=== PATIENT | female | born 1995 | race Caucasian/White ===

== ENCOUNTER 2019-07-07 01:39 | Emergency (ER) | payer MEDICAID, SELFPAY ==
[2019-07-07] VITALS (8 sets, daily range): BP systolic 94–129; BP diastolic 54–74; PULSE 72–88; RESP 16–18; TEMP 36.6; O2SAT 96–99; BMI 30.2
[2019-07-07 02:02] LABS: Basophils # 0.1 10^3/uL (0.0-0.1); Basophils % 0.7 %; Eosinophils # 0.1 10^3/uL (0.0-0.8); Eosinophils % 1.7 %; Hematocrit 39.7 % (37.0-47.0); Hemoglobin 13.5 g/dL (11.5-15.3); Lymphocytes # 3.3 10^3/uL (0.8-4.8); Lymphocytes % 40.7 %; Mean Corpuscular Hemoglobin 29.5 pg (28.0-34.0); Mean Corpuscular Volume 86.9 fL (81-99); Mean Platelet Volume 10.6 fL (7.4-10.4); Monocytes # 0.4 10^3/uL (0.2-0.9); Monocytes % 4.8 %; Neutrophils # 4.2 10^3/uL (1.8-7.7); Neutrophils % 51.6 %; Nucleated Red Blood Cells % 0 %; Platelet Count 264 10^3/cmm (130-400); Red Blood Count 4.57 10^6/uL (4.1-5.3); Red Cell Distribution Width 12.7 % (12.1-15.1); White Blood Count 8.1 10^3/uL (4.0-10.0)
[2019-07-07 02:15] LABS: Alanine Aminotransferase 30 U/L (0-33); Albumin Level 4.9 g/dL (3.5-5.2); Alkaline Phosphatase 95 IU/L (35-105); Anion Gap 14.5 (5-19); Aspartate Amino Transferase 22 U/L (0-32); Blood Urea Nitrogen 11 mg/dL (6-20); Carbon Dioxide 27 mmol/L (22-29); Chloride 100 mmol/L (98-107); Globulin 2.8 g/dL (1.3-4.6); Glomerular Filtration Rate 101.1 mL/min (90-130); Glucose 118 mg/dL (74-109); Lipase 22 U/L (13-60); Potassium 3.5 mmol/L (3.5-5.1); Sodium 138 mmol/L (136-145); Total Bilirubin 0.6 mg/dL (0.15-1.2); Total Protein 7.7 g/dL (6.6-8.7)
--- NOTE | 2019-07-07 02:16 | ED_ITS ---
Entered by Kinsey Goodwin, acting as scribe for Jordan Baker DO Jul 07, 2019 01:39 HPI - Abdominal Pain General: Chief Complaint: Abdominal Pain Stated Complaint: ABD PAIN Time Seen by Provider: 07/07/19 02:17 Source: patient Mode of arrival: ambulatory Limitations: no limitations History of Present Illness: HPI narrative: 24 yo m came to the er pov fro abd pain. Onset was 3 days ago. Pt states that she has been vomiting and has had some nausea. Pt states that the pain started 3 days ago but has gotten worse. Pt states that she has been having some dark stool. MD elicited complaint: abdominal pain Pertinent past history: none Onset (ago): day(s) (3 days ago) Pain Consistency: constant Location: Epigastric and LUQ Severity: mild Pain scale (0-10): 8 Quality: sharp Migration to: no migration Associated Symptoms: Denies chills, dysuria, fever(s), hematochezia, hematuria, melena, nausea and vomiting Related Data: Patient : No Review of Systems Const: Denies: fever or chills Eyes: Denies: change in vision or blurry vision ENMT: Denies: painful swallowing, swelling of lips/tongue, bleeding gums, dental pain, Change in hearing, nose bleeds, post nasal drip or facial/sinus pain Card: Denies: chest pain, palpitations, irregular heart rhythm, edema, swelling of feet/ankles, shortness of breath on exertion or shortness of breath when lying down Resp: Denies: shortness of breath, productive cough, non-productive cough or wheezing GI: Denies: nausea, vomiting, blood in stool or black tarry stool : Denies: painful urination or blood in urine Musc: Denies: neck pain, back pain, redness or joint warmth Skin/Breast: Denies: rash, itching or redness Neuro: Denies: headache, dizziness, vertigo, confusion or seizure-like activity Psych: Denies: anxiety, visual hallucinations or auditory hallucinations PFSH ED PFSH: Statuses (acute, chronic, etc) shown below reflect problem list status as previously entered and may not be historically accurate Social History Smoking and tobacco status: former smoker Physical Exam Const: COMMON NORMALS: alert GENERAL APPEARANCE: well developed ORIENTATION/CONSCIOUSNESS: Yes awake, Yes oriented to person, Yes oriented to place and Yes oriented to time HENMT: COMMON NORMALS: normocephalic, external ears normal, external nose normal and moist oral mucous membranes HEAD & SCALP: normocephalic; no scalp tenderness FACE & SINUS: normal facial exam NOSE: external nose normal and no nasal discharge EXTERNAL EAR: Yes external ears normal MOUTH: tongue normal TEETH & GINGIVA: no abnormal tooth and associated gingiva THROAT: posterior oropharynx normal; no peritonsillar mass Eye: COMMON NORMALS: PERRL, EOMs intact bilaterally and conjunctivae normal EYELID: eyelids normal CONJUNCTIVA: Yes conjunctivae normal PUPIL: Yes PERRL Neck/C-Spine: COMMON NORMALS: full ROM GENERAL: Yes anterior neck swelling and No tracheal deviation CERVICAL SPINE: Yes normal cervical lordosis, No cervical spine tenderness, No step off deformity, No paracervical muscle tenderness and No paracervical muscle spasm Chest: COMMONS NORMALS: inspection of chest normal CHEST: Yes symmetrical chest wall rise and No tenderness Resp: COMMON NORMALS: clear to auscultation bilaterally EFFORT & INSPECTION: No tachypneic, No respiratory distress, No retractions, No uses accessory muscles and No tracheal deviation AUSCULTATION: clear to auscultation bilaterally, no rhonchi, no wheezes and lung sounds not diminished Cardio: COMMON NORMALS: regular rate and regular rhythm RATE: regular rate RHYTHM: regular rhythm HEART SOUNDS: no murmurs PERIPHERAL PULSES: radial pulses present GI: INSPECTION: No abdominal distension AUSCULTATION: No hyperactive bowel sounds and No hypoactive bowel sounds PALPATION: No tender, No guarding and No rigid PERCUSSION: no dullness to percussion and no tympanic to percussion : COMMON NORMALS: Yes no CVA tenderness BLADDER/KIDNEY EXAM: Yes no CVA tenderness Back/Pelvis: COMMON NORMALS: no CVA tenderness PELVIS: Yes no pain with anterior-posterior compression and Yes no pain with lateral compression Neuro: SENSORIUM/ORIENTATION: Yes alert, Yes oriented to person, Yes oriented to place and Yes oriented to time Psych: COMMON NORMALS: mental status grossly normal and speech normal SPEECH: Yes normal speech Skin: COMMON NORMALS: no rashes or lesions noted GENERAL SKIN EXAM: no rashes or lesions noted Course ED course: 24-year-old non female presents with generalized belly pain, mainly in the periumbilical region. No flank pain. She is vomited once. No fever. No leukocytosis. Her CRP is 0.4. Liver enzymes are normal. She has a hazy appearing urine, with some red cells. She is feeling better after medication. Will allow home with pain and nausea medication. Vital Signs: Vital signs: Vital Signs Temperature 97.8 F 07/07/19 03:40 Pulse Rate 84 07/07/19 04:07 Respiratory Rate 18 07/07/19 03:11 Blood Pressure 94/60 07/07/19 04:07 Pulse Oximetry 98 07/07/19 04:07 MDM - Abdominal Pain Lab Data: Labs: Lab Results 07/07/19 07/07/19 07/07/19 Range/Units 01:55 01:55 01:55 WBC 8.1 (4.0-10.0) 10^3/ uL RBC 4.57 (4.1-5.3) 10^6/u L Hgb 13.5 (11.5-15.3) g/dL Hct 39.7 (37.0-47.0) % MCV 86.9 (81-99) fL MCH 29.5 (28.0-34.0) pg MCHC 34.0 (30.0-36.0) g/dL RDW 12.7 (12.1-15.1) % Plt Count 264 (130-400) 10^3/c mm MPV 10.6 H (7.4-10.4) fL Neut % (Auto) 51.6 % Lymph % (Auto) 40.7 % [place] % (Auto) 4.8 % Eos % (Auto) 1.7 % Baso % (Auto) 0.7 % Neut # (Auto) 4.2 (1.8-7.7) 10^3/u L Lymph # (Auto) 3.3 (0.8-4.8) 10^3/u L [place] # (Auto) 0.4 (0.2-0.9) 10^3/u L Eos # (Auto) 0.1 (0.0-0.8) 10^3/u L Baso # (Auto) 0.1 (0.0-0.1) 10^3/u L Nucleated RBC % (a uto) 0 % Nucleated RBCs # 0.0 /100WBC Sodium 138 (136-145) mmol/L Potassium 3.5 (3.5-5.1) mmol/L Chloride 100 (98-107) mmol/L Carbon Dioxide 27 (22-29) mmol/L Anion Gap 14.5 (5-19) BUN 11 (6-20) mg/dL Creatinine 0.7 (0.5-0.9) mg/dL GFR Calculation 101.1 (90-130) mL/min Glucose 118 H (74-109) mg/dL Calcium 10.0 (8.6-10.0) mg/Dl Total Bilirubin 0.6 (0.15-1.2) mg/dL AST 22 (0-32) U/L ALT 30 (0-33) U/L Alkaline Phosphata se 95 (35-105) IU/L C-Reactive Protein (0.0-4.9) mg/L Total Protein 7.7 (6.6-8.7) g/dL Albumin 4.9 (3.5-5.2) g/dL Globulin 2.8 (1.3-4.6) g/dL Lipase 22 (13-60) U/L HCG, Qual Negative (Negative) Urine Color (Yellow) Urine Appearance (CLEAR) Urine pH (5-7) Ur Specific Gravit y (1.005-1.030) Urine Protein (Negative) Urine Glucose (UA) (Normal) Urine Ketones (Negative) Urine Occult Blood (Negative) Urine Nitrate (Negative) Urine Bilirubin (NEGATIVE) Urine Urobilinogen (Negative) mg/dL Ur Leukocyte [place] (Negative) Urine RBC (0-2) /hpf Urine WBC (0-5) /hpf Ur Squamous Epith Cells (0-5) Urine Bacteria (NONE) 07/07/19 07/07/19 Range/Units 01:55 03:38 WBC (4.0-10.0) 10^3/ uL RBC (4.1-5.3) 10^6/u L Hgb (11.5-15.3) g/dL Hct (37.0-47.0) % MCV (81-99) fL MCH (28.0-34.0) pg MCHC (30.0-36.0) g/dL RDW (12.1-15.1) % Plt Count (130-400) 10^3/c mm MPV (7.4-10.4) fL Neut % (Auto) % Lymph % (Auto) % [place] % (Auto) % Eos % (Auto) % Baso % (Auto) % Neut # (Auto) (1.8-7.7) 10^3/u L Lymph # (Auto) (0.8-4.8) 10^3/u L [place] # (Auto) (0.2-0.9) 10^3/u L Eos # (Auto) (0.0-0.8) 10^3/u L Baso # (Auto) (0.0-0.1) 10^3/u L Nucleated RBC % (a uto) % Nucleated RBCs # /100WBC Sodium (136-145) mmol/L Potassium (3.5-5.1) mmol/L Chloride (98-107) mmol/L Carbon Dioxide (22-29) mmol/L Anion Gap (5-19) BUN (6-20) mg/dL Creatinine (0.5-0.9) mg/dL GFR Calculation (90-130) mL/min Glucose (74-109) mg/dL Calcium (8.6-10.0) mg/Dl Total Bilirubin (0.15-1.2) mg/dL AST (0-32) U/L ALT (0-33) U/L Alkaline Phosphata se (35-105) IU/L C-Reactive Protein 0.4 (0.0-4.9) mg/L Total Protein (6.6-8.7) g/dL Albumin (3.5-5.2) g/dL Globulin (1.3-4.6) g/dL Lipase (13-60) U/L HCG, Qual (Negative) Urine Color Dark yellow (Yellow) Urine Appearance Hazy A (CLEAR) Urine pH 5 (5-7) Ur Specific Gravit y 1.025 (1.005-1.030) Urine Protein Trace (Negative) Urine Glucose (UA) Norm (Normal) Urine Ketones 1+ H (Negative) Urine Occult Blood 2+ H (Negative) Urine Nitrate Negative (Negative) Urine Bilirubin 1+ H (NEGATIVE) Urine Urobilinogen 1 H (Negative) mg/dL Ur Leukocyte [place] Trace H (Negative) Urine RBC 10-15 H (0-2) /hpf Urine WBC 0-4 H (0-5) /hpf Ur Squamous Epith Cells 5-10 H (0-5) Urine Bacteria 4+ H (NONE) Discharge Plan Discharge Patient Disposition: Home, Self-Care Clinical Impression: Abdominal pain in female Condition: Stable Prescriptions: [place] 5-325 mg tablet 1 tab PO Q6H PRN (Reason: pain) Qty: 7 RF: 0 ondansetron HCl [Zofran] 4 mg tablet 4 mg PO Q6H PRN (Reason: nausea and vomiting) Qty: 10 RF: 0 No Action Prozac 20 mg Capsule 20 mg PO DAILY RF: 0 Discharge Orders: Discharge Order (Routine); Ordered 07/07/19 Ordered By: Jordan Baker Referrals: Reid Gamino MD [Primary Care Provider] - Discharge Diet: Advance as tolerated Discharge Activity: Resume usual activity Patient Instructions: Cholecystitis (ED), Abdominal Pain (ED) Activity Restrictions/Additional Instructions: Return for fever greater than 100, worsening pain despite treatment, vomiting liquids or medications, other concerning symptoms. Coding Level of Care Code ED Facsimile Machine Operator for g Fwd The documentation recorded by the Buddy joyce Stephanie Lyn, accurately reflects the service I personally performed and the decisions made by Samuel arzate Jeremy John, DO Jul 07, 2019 01:39
--- NOTE | 2019-07-07 02:27 | PC.NURSE ---
Addendum entered by Devin Laguna 07/07/19 02:27: NAD. Pt is A&O x 4 Original Note: Pt presents to ER with abdominal pain. Pt states very dark stool earler in PM.
[2019-07-07 02:44] LABS: HCG, Serum Qual Negative (Negative)
[2019-07-07 02:45] LABS: C Reactive Protein 0.4 mg/L (0.0-4.9)
[2019-07-07 04:15] LABS: Add Urine Microscopic? YES; Bilirubin Urine 1+ (NEGATIVE); Blood Urine 2+ (Negative); Glucose Urine UA Norm (Normal); Ketones Urine 1+ (Negative); Leukocyte Esterase Urine Trace (Negative); Nitrate Urine Negative (Negative); Protein Urine Trace (Negative); Specific Gravity, Urine 1.025 (1.005-1.030); Urine Appearance Hazy (CLEAR); Urine Color Dark Yellow (Yellow); Urobilinogen Urine 1 mg/dL (Negative); pH Urine 5 (5-7)
[2019-07-07 04:16] LABS: Add Urine Culture? Yes; Bacteria Urine 4+; WBC Urine 0-4 /hpf (0-5)
[2019-07-07] MEDS: ondansetron 2 mg/ML SDV 2 mL 4 MG IVP (04:22)
[2019-07-07] MEDS: morphine 4 mg/mL SDV 1 mL IVP (04:23)
== END 2019-07-07 04:48 | disposition home or self-care (01) ==
PROVIDERS: Physician Assistant; Emergency Provider Emergency Medicine; PCP Family Medicine
DX: R10.9 Unspecified abdominal pain (principal); Z87.891 Personal history of nicotine dependence
CPT/HCPCS: 80053; 81003; 83690; 84703; 85025; 86140; 87086; 96374; 99282; J2270; J2405

== ENCOUNTER → 2019-08-23 08:16 | Outpatient (BNVA) | payer MEDICAID, SELFPAY | PROVIDERS: PCP Family Medicine; Visit Provider Counselor Mental Health | DX: F41.1 Generalized anxiety disorder (principal) | CPT/HCPCS: 90832 ==

== ENCOUNTER → 2019-08-30 09:49 | Outpatient (BNVA) | payer MEDICAID, SELFPAY | PROVIDERS: PCP Family Medicine; Visit Provider Counselor Mental Health | DX: F41.1 Generalized anxiety disorder (principal); F43.10 Post-traumatic stress disorder, unspecified | CPT/HCPCS: 90834 ==

== ENCOUNTER 2019-09-08 19:39 | Emergency (ER) | payer MEDICAID, SELFPAY ==
[2019-09-08 20:18] VITALS: BP 129/77; PULSE 137; RESP 18; TEMP 36.6; O2SAT 99
[2019-09-08 20:18] LABS: Basophils % 0.2 %; Eosinophils # 0.1 10^3/uL (0.0-0.8); Eosinophils % 0.9 %; Hematocrit 41.3 % (37.0-47.0); Hemoglobin 14.2 g/dL (11.5-15.3); Lymphocytes # 0.5 10^3/uL (0.8-4.8); Lymphocytes % 6.1 %; Mean Corpuscular HGB Conc 34.4 g/dL (30.0-36.0); Mean Corpuscular Hemoglobin 29.5 pg (28.0-34.0); Mean Corpuscular Volume 85.7 fL (81-99); Mean Platelet Volume 11.1 fL (7.4-10.4); Monocytes # 0.2 10^3/uL (0.2-0.9); Monocytes % 2.2 %; Neutrophils # 7.8 10^3/uL (1.8-7.7); Neutrophils % 90.3 %; Nucleated Red Blood Cells % 0 %; Platelet Count 153 10^3/cmm (130-400); Red Blood Count 4.82 10^6/uL (4.1-5.3); Red Cell Distribution Width 12.2 % (12.1-15.1); White Blood Count 8.6 10^3/uL (4.0-10.0)
[2019-09-08 20:29] LABS: HCG, Serum Qual Negative (Negative)
[2019-09-08 20:36] LABS: Alanine Aminotransferase 24 U/L (0-33); Alkaline Phosphatase 75 IU/L (35-105); Anion Gap 19.6 (5-19); Aspartate Amino Transferase 29 U/L (0-32); Blood Urea Nitrogen 19 mg/dL (6-20); Calcium 9.9 mg/dL (8.5-10.5); Carbon Dioxide 21 mmol/L (22-29); Chloride 100 mmol/L (98-107); Globulin 2.5 g/dL (1.3-4.6); Glomerular Filtration Rate 86.7 mL/min (90-130); Glucose 119 mg/dL (65-115); Lipase 23 U/L (13-60); Osmolality Calculated 282 mOsm/kg (285-295); Potassium 3.6 mmol/L (3.5-5.1); Sodium 137 mmol/L (136-145); Total Bilirubin 0.7 mg/dL (0.15-1.2); Total Protein 7.5 g/dL (6.6-8.7)
--- NOTE | 2019-09-08 20:38 | CTR_ITS ---
PROCEDURE INFORMATION: Exam: CT Abdomen And Pelvis With Contrast Exam date and time: 09/08/2019 9:14 PM Age: 24 years old Clinical indication: Abdominal pain; Localized; Prior surgery; Surgery date: 6+ months; Surgery type: Utreine repair; Patient HX: C/O lower abd pain w n/v/d TECHNIQUE: Imaging protocol: Computed tomography of the abdomen and pelvis with intravenous contrast. Total DLP: 733.3 mGy-cm Radiation optimization: All CT scans at this facility use at least one of these dose optimization techniques: automated exposure control; mA and/or kV adjustment per patient size (includes targeted exams where dose is matched to clinical indication); or iterative reconstruction. Contrast material: OMNI 300; Contrast volume: 95 ml; Contrast route: 22G; COMPARISON: CT abdomen pelvis w con* [id number] 05/28/2018 9:03 PM FINDINGS: Liver: Normal. No mass. Gallbladder and bile ducts: Normal. No calcified stones. No ductal dilation. Pancreas: Normal. No ductal dilation. Spleen: Normal. No splenomegaly. Adrenals: Normal. No mass. Kidneys and ureters: Normal. No hydronephrosis. Stomach and bowel: Unremarkable. No obstruction. No mucosal thickening. Appendix: The appendix is normal. Intraperitoneal space: Trace free fluid is present in the pelvis, which is likely physiologic. Vasculature: Unremarkable. No abdominal aortic aneurysm. Lymph nodes: Unremarkable. No enlarged lymph nodes. Bladder: Unremarkable as visualized. Reproductive: The uterus appears normal. Bilateral ovarian cysts are noted. The largest cyst measures 3 cm (left ovary). Bones/joints: Unremarkable. No acute fracture. Soft tissues: Unremarkable. CT/CT abdomen pelvis w con* [id number] IMPRESSION: No acute abnormality is seen. Bilateral ovarian cysts are noted. Radiation Dose CTDIVOL = (mGy): DLP = 733.3 (mGy-cm)
--- NOTE | 2019-09-08 20:44 | ED_ITS ---
Entered by Denisha Barreto, acting as scribe for Macrina Plaza Mahesh Sep 08, 2019 19:39 HPI - Abdominal Pain General: Chief Complaint: Abdominal Pain Stated Complaint: lower abd pain/vomiting Time Seen by Provider: 09/08/19 20:34 Source: patient Mode of arrival: ambulatory Limitations: no limitations History of Present Illness: HPI narrative: 24 yo Female presents to ED with complaint of lower abdominal pain. Pt states that her pain started 2-3 days ago but has worsened today. Pt states that she has had nausea and vomiting today as well. MD elicited complaint: abdominal pain Onset (ago): day(s) (2-3) Pain Consistency: constant Location: RLQ Pain scale (0-10): 10 Quality: stabbing and sharp Radiation: none Migration to: no migration Exacerbating factors: nothing Relieving factors: nothing Associated Symptoms: Reports nausea and vomiting; Denies chills, coffee ground emesis, constipation, GI cramping, diarrhea, dysuria, fever(s), hematochezia, hematuria, hematemesis, melena and syncope Review of Systems General: Reports: other (negative unless marked) Const: Denies: fever, chills, body aches, fatigue, malaise or diaphoresis Eyes: Denies: change in vision or blurry vision ENMT: Denies: throat pain, painful swallowing, hoarseness, ear pain, ear discharge, Change in hearing or nasal discharge Card: Denies: chest pain, palpitations, irregular heart rhythm, syncope, pre- syncope, shortness of breath on exertion or shortness of breath when lying down Resp: Denies: shortness of breath, productive cough, non-productive cough, wheezing, coughing up blood or chest congestion GI: Reports: nausea and vomiting; Denies: abdominal pain, vomiting blood, coffee grounds in vomit, diarrhea, constipation, cramping, blood in stool or black tarry stool : Denies: flank pain, painful urination, urinary frequency, urinary urgency, decreased urine ouput, urinary incontinence or blood in urine Musc: Denies: neck pain, back pain, extremity pain, extremity swelling, joint pain, joint swelling, joint warmth or joint stiffness Skin/Breast: Denies: rash, skin tenderness or yellow skin Neuro: Denies: headache, numbness in extremities, weakness in extremities, changes in sensation, lack of coordination, difficulty walking, dizziness, vertigo or confusion Endo: Denies: excessive thirst, tired all the time, cold intolerance, excessive sweating, flushing or hot flashes Bonifacio/Lymph: Denies: easy bruising, easy bleeding, petechiae or enlarged lymph nodes All/Imm: Denies: hives, throat swelling, tongue swelling, facial swelling or acute wheezing PFSH ED PFSH: Social History Smoking and tobacco status: former smoker Physical Exam Const: COMMON NORMALS: no apparent distress, oriented x3, no limitations, healthy appearing and well nourished EXAM LIMITATIONS: no altered mental status GENERAL APPEARANCE: cooperative, well kempt and well developed ORIENTATION/CONSCIOUSNESS: Yes awake HENMT: COMMON NORMALS: normocephalic, head/scalp atraumatic, hearing grossly normal bilaterally, external ears normal, EAC's normal, external nose normal and moist oral mucous membranes HEAD & SCALP: normal to inspection, normocephalic and atraumatic FACE & SINUS: normal facial exam and face symmetric NOSE: external nose normal and nares normal EXTERNAL EAR: Yes external ears normal EXTERNAL AUDITORY CANAL: EAC's normal MOUTH: oral and palatal mucosa normal and tongue normal Eye: COMMON NORMALS: PERRL, EOMs intact bilaterally, conjunctivae normal and no scleral icterus GENERAL EYE: normal appearance of both eyes and normal light reflex CONJUNCTIVA: Yes conjunctivae normal SCLERA: sclerae normal CORNEA: Yes corneas normal PUPIL: Yes PERRL DIRECT OPHTHALMOSCOPY: Yes normal light reflex Neck/C-Spine: COMMON NORMALS: full ROM, no lymphadenopathy, supple, no meningeal signs and no JVD GENERAL: Yes normal visual inspection and Yes trachea midline CERVICAL SPINE: Yes cervical ROM normal Chest: COMMONS NORMALS: inspection of chest normal and palpation of chest normal Resp: COMMON NORMALS: normal respiratory effort, no retractions, no use of accessory muscles and clear to auscultation bilaterally EFFORT & INSPECTION: Yes able to speak in complete sentences AUSCULTATION: clear to auscultation bilaterally Cardio: COMMON NORMALS: no JVD, regular rate, regular rhythm, S1 normal heart sound, S2 normal heart sound, no gallops, no clicks, no murmurs and no rub JUGULAR VENOUS DISTENTION: no JVD RATE: regular rate RHYTHM: regular rhythm HEART SOUNDS: S1 normal and S2 normal GI: COMMON NORMALS: soft to palpation, non-tender, no hepatosplenomegaly and no masses INSPECTION: Yes normal to inspection PALPATION: Yes soft and Yes no hepatosplenomegaly : COMMON NORMALS: Yes no CVA tenderness BLADDER/KIDNEY EXAM: Yes no CVA tenderness Back/Pelvis: COMMON NORMALS: no CVA tenderness, thoracic and lumbar spine normal to inspection, no thoracic nor lumbar tenderness and thoraco-lumbar ROM normal Extremity: COMMON NORMALS: normal to inspection, full ROM, normal capillary refill, no joint enlargement, no clubbing, cyanosis or edema and no calf tenderness Neuro: COMMON NORMALS: oriented x3, CN's II-XII intact bilaterally, moves all extremities, no focal motor deficits and no sensory deficits noted MENINGEAL SIGNS: Yes no meningeal signs Psych: COMMON NORMALS: mental status grossly normal, thought process normal, cooperative, affect normal, speech normal and activity/motor behavior normal APPEARANCE: Yes well kempt SPEECH: Yes normal speech THOUGHT PROCESS: normal thought process Skin: COMMON NORMALS: no rashes or lesions noted, skin turgor normal, no jaundice, no petechiae and no mottling GENERAL SKIN EXAM: no rashes or lesions noted and turgor normal Course Vital Signs: Vital signs: Vital Signs Temperature 97.9 F 09/08/19 20:18 Pulse Rate 92 09/08/19 23:00 Respiratory Rate 18 09/08/19 23:00 Blood Pressure 121/75 09/08/19 23:00 Pulse Oximetry 97 09/08/19 23:00 MDM - Abdominal Pain 2 MDM Narrative: Medical decision making narrative: Poly is a nice 24-year-old female who comes in complaining primarily of right lower quadrant pain. The pain started 2 to 3 days ago and is wax and wane in intensity. She denies any vaginal discharge or bleeding. She has any dysuria, urinary frequency or urgency. On exam she has tenderness in the right lower quadrant but there is no rebound or guarding. CT scan reveals a normal appendix. There are bilateral ovarian cysts that are small. 3 cm being the biggest cyst. This is on the left. Patient has no focal tenderness on the left. I did offer and recommend a ultrasound to rule out ovarian torsion but the patient declines. She is feeling better and was ready to go home. I reviewed with her at length the signs and symptoms for which to return for especially for appendicitis and she states she understands. She will follow-up as directed or return here if needed. Lab Data: Labs: Lab Results 09/08/19 09/08/19 09/08/19 Range/Units 20:08 20:08 20:08 WBC 8.6 (4.0-10.0) 10^3/ uL RBC 4.82 (4.1-5.3) 10^6/u L Hgb 14.2 (11.5-15.3) g/dL Hct 41.3 (37.0-47.0) % MCV 85.7 (81-99) fL MCH 29.5 (28.0-34.0) pg MCHC 34.4 (30.0-36.0) g/dL RDW 12.2 (12.1-15.1) % Plt Count 153 (130-400) 10^3/c mm MPV 11.1 H (7.4-10.4) fL Neut % (Auto) 90.3 % Lymph % (Auto) 6.1 % [place] % (Auto) 2.2 % Eos % (Auto) 0.9 % Baso % (Auto) 0.2 % Neut # (Auto) 7.8 H (1.8-7.7) 10^3/u L Lymph # (Auto) 0.5 L (0.8-4.8) 10^3/u L [place] # (Auto) 0.2 (0.2-0.9) 10^3/u L Eos # (Auto) 0.1 (0.0-0.8) 10^3/u L Baso # (Auto) 0.0 (0.0-0.1) 10^3/u L Nucleated RBC % (a uto) 0 % Nucleated RBCs # 0.0 /100WBC Sodium 137 (136-145) mmol/L Potassium 3.6 (3.5-5.1) mmol/L Chloride 100 (98-107) mmol/L Carbon Dioxide 21 L (22-29) mmol/L Anion Gap 19.6 H (5-19) BUN 19 (6-20) mg/dL Creatinine 0.8 (0.5-0.9) mg/dL GFR Calculation 86.7 L (90-130) mL/min Glucose 119 H (65-115) mg/dL Calculated Osmolal ity 282 L (285-295) mOsm/k g Calcium 9.9 (8.5-10.5) mg/dL Total Bilirubin 0.7 (0.15-1.2) mg/dL AST 29 (0-32) U/L ALT 24 (0-33) U/L Alkaline Phosphata se 75 (35-105) IU/L Total Protein 7.5 (6.6-8.7) g/dL Albumin 5.0 (3.5-5.2) g/dL Globulin 2.5 (1.3-4.6) g/dL Lipase 23 (13-60) U/L HCG, Qual Negative (Negative) Urine Color (Yellow) Urine Appearance (CLEAR) Urine pH (5-7) Ur Specific Gravit y (1.005-1.030) Urine Protein (Negative) Urine Glucose (UA) (Normal) Urine Ketones (Negative) Urine Blood (Negative) Urine Nitrate (Negative) Urine Bilirubin (NEGATIVE) Urine Urobilinogen (Negative) mg/dL Ur Leukocyte Lena ase (Negative) Urine RBC (0-2) /hpf Urine WBC (0-5) /hpf Ur Squamous Epith Cells (0-5) Urine Bacteria (NONE) 09/08/19 Range/Units 21:52 WBC (4.0-10.0) 10^3/ uL RBC (4.1-5.3) 10^6/u L Hgb (11.5-15.3) g/dL Hct (37.0-47.0) % MCV (81-99) fL MCH (28.0-34.0) pg MCHC (30.0-36.0) g/dL RDW (12.1-15.1) % Plt Count (130-400) 10^3/c mm MPV (7.4-10.4) fL Neut % (Auto) % Lymph % (Auto) % [place] % (Auto) % Eos % (Auto) % Baso % (Auto) % Neut # (Auto) (1.8-7.7) 10^3/u L Lymph # (Auto) (0.8-4.8) 10^3/u L [place] # (Auto) (0.2-0.9) 10^3/u L Eos # (Auto) (0.0-0.8) 10^3/u L Baso # (Auto) (0.0-0.1) 10^3/u L Nucleated RBC % (a uto) % Nucleated RBCs # /100WBC Sodium (136-145) mmol/L Potassium (3.5-5.1) mmol/L Chloride (98-107) mmol/L Carbon Dioxide (22-29) mmol/L Anion Gap (5-19) BUN (6-20) mg/dL Creatinine (0.5-0.9) mg/dL GFR Calculation (90-130) mL/min Glucose (65-115) mg/dL Calculated Osmolal ity (285-295) mOsm/k g Calcium (8.5-10.5) mg/dL Total Bilirubin (0.15-1.2) mg/dL AST (0-32) U/L ALT (0-33) U/L Alkaline Phosphata se (35-105) IU/L Total Protein (6.6-8.7) g/dL Albumin (3.5-5.2) g/dL Globulin (1.3-4.6) g/dL Lipase (13-60) U/L HCG, Qual (Negative) Urine Color Yellow (Yellow) Urine Appearance Clear (CLEAR) Urine pH 5 (5-7) Ur Specific Gravit y 1.015 (1.005-1.030) Urine Protein Neg (Negative) Urine Glucose (UA) Norm (Normal) Urine Ketones 2+ H (Negative) Urine Blood 2+ H (Negative) Urine Nitrate Negative (Negative) Urine Bilirubin Neg (NEGATIVE) Urine Urobilinogen Norm (Negative) mg/dL Ur Leukocyte Lena ase Negative (Negative) Urine RBC 0-4 H (0-2) /hpf Urine WBC 0-4 H (0-5) /hpf Ur Squamous Epith Cells 5-10 H (0-5) Urine Bacteria 1+ H (NONE) Imaging Data ^: CT Abd/Pel: Radiologist's impression: [address] [address] [address] Scan Report Signed Patient: Poly Angulo CUnit #: [id number] : 1995Acct#:[id number] Age/Sex: / FADM Date: 09/08/19 Loc: ERRoom/Bed: Attending Dr: Ordering Provider/Ordering MD: Macrina Plaza DO Date of Service: 09/08/19 Procedure(s): CT abdomen pelvis w con* [id number] Accession Number(s): [id number] Report Number: [id number] PROCEDURE INFORMATION: Exam: CT Abdomen And Pelvis With Contrast Exam date and time: 09/08/2019 9:14 PM Age: 24 years old Clinical indication: Abdominal pain; Localized; Prior surgery; Surgery date: 6+ months; Surgery type: Utreine repair; Patient HX: C/O lower abd pain w n/v/d TECHNIQUE: Imaging protocol: Computed tomography of the abdomen and pelvis with intravenous contrast. Total DLP: 733.3 mGy-cm Radiation optimization: All CT scans at this facility use at least one of these dose optimization techniques: automated exposure control; mA and/or kV adjustment per patient size (includes targeted exams where dose is matched to clinical indication); or iterative reconstruction. Contrast material: OMNI 300; Contrast volume: 95 ml; Contrast route: 22G; COMPARISON: CT abdomen pelvis w con* [id number] 05/28/2018 9:03 PM FINDINGS: Liver: Normal. No mass. Gallbladder and bile ducts: Normal. No calcified stones. No ductal dilation. Pancreas: Normal. No ductal dilation. Spleen: Normal. No splenomegaly. Adrenals: Normal. No mass. Kidneys and ureters: Normal. No hydronephrosis. Stomach and bowel: Unremarkable. No obstruction. No mucosal thickening. Appendix: The appendix is normal. Intraperitoneal space: Trace free fluid is present in the pelvis, which is likely physiologic. Vasculature: Unremarkable. No abdominal aortic aneurysm. Lymph nodes: Unremarkable. No enlarged lymph nodes. Bladder: Unremarkable as visualized. Reproductive: The uterus appears normal. Bilateral ovarian cysts are noted. The largest cyst measures 3 cm (left ovary). Bones/joints: Unremarkable. No acute fracture. Soft tissues: Unremarkable. CT/CT abdomen pelvis w con* [id number] IMPRESSION: No acute abnormality is seen. Bilateral ovarian cysts are noted. Radiation Dose CTDIVOL = (mGy): DLP = 733.3 (mGy-cm) Dictated By:Jack Carter MD Signed By:Jack Carter MDSigned Date/Time:09/08/192214 DD/ 13 Discharge Plan Discharge Patient Disposition: Home, Self-Care Clinical Impression: Abdominal pain Qualifiers: Abdominal location: right lower quadrant Qualified Code(s): R10.31 - Right lower quadrant pain Condition: Stable Prescriptions: No Action fluoxetine 20 mg capsule 20 mg PO DAILY RF: 0 Dramamine 50 mg Tablet 50 mg PO Q8H RF: 0 Discharge Orders: Discharge Order (Routine); Ordered 09/08/19 Ordered By: Macrina Plaza Referrals: Brandin Lawrence MD [Physician] - 1-3 days Discharge Diet: Advance as tolerated Discharge Activity: Increase activity as tolerated Patient Instructions: Abdominal Pain (ED) Activity Restrictions/Additional Instructions: Please return to the ER immediately for any of the signs or symptoms listed on your discharge instruction sheets, worsening/changing of your symptoms, you are not getting better as quickly as expected, or for ANY other cause or concerns. Return to the ER tomorrow morning if you are having any pain at all your abdomen as developing appendicitis is still a possibility for your pain. You have declined to have a pelvic ultrasound to rule out ovarian torsion this is a threat to your fertility. If you change your mind or your symptoms worsen you are again welcome to return for this tested for further evaluation and care. Discharge Date/Time: 09/08/19 23:01 Coding Level of Care Code ED Distribution Driver for Chg Fwd Exam Comprehensive The documentation recorded by the Estevan joyce Carmen, accurately reflects the service I personally performed and the decisions made by Mela arzate Eli N Sep 08, 2019 19:39
[2019-09-08] MEDS: sodium chloride 0.9% 1,000 ML 999 ML IV (20:57)
[2019-09-08] MEDS: ondansetron 2 mg/ML SDV 2 mL 4 MG IVP (20:59)
[2019-09-08 21:01] VITALS: RESP 18; O2SAT 98
[2019-09-08] MEDS: morphine 4 mg/mL SDV 1 mL IVP (21:01)
[2019-09-08] MEDS: iohexol 300 mg/mL 100 mL Btl IV (21:22)
[2019-09-08 22:13] VITALS: BP 127/85; PULSE 95; RESP 18; O2SAT 97
[2019-09-08 22:30] LABS: Bilirubin Urine Neg (NEGATIVE); Blood Urine 2+ (Negative); Glucose Urine UA Norm (Normal); Ketones Urine 2+ (Negative); Leukocyte Esterase Urine Negative (Negative); Nitrate Urine Negative (Negative); Protein Urine Neg (Negative); Specific Gravity, Urine 1.015 (1.005-1.030); Urine Appearance Clear (CLEAR); Urine Color Yellow (Yellow); Urobilinogen Urine Norm (Negative); pH Urine 5 (5-7)
[2019-09-08 22:31] LABS: Bacteria Urine 1+; RBC Urine 0-4 /hpf (0-2); WBC Urine 0-4 /hpf (0-5)
[2019-09-08] MEDS: ketorolac 30 mg/mL INJ 10 MG IVP (22:56)
[2019-09-08 23:00] VITALS: BP 121/75; PULSE 92; RESP 18; O2SAT 97
== END 2019-09-08 23:01 | disposition home or self-care (01) ==
PROVIDERS: Emergency Medicine; Emergency Provider Emergency Medicine
DX: R10.31 Right lower quadrant pain (principal); Z87.891 Personal history of nicotine dependence
CPT/HCPCS: 12345; 74177; 80053; 81001; 83690; 84703; 85025; 96360; 96361; 96374; 96375; 99283; A9270; J1885; J2270; J2405; J7030; Q9967

== ENCOUNTER → 2019-10-27 11:36 | Outpatient (BNVA) | payer MEDICAID, SELFPAY | PROVIDERS: Visit Provider Nurse Practitioner | DX: J02.9 Acute pharyngitis, unspecified (principal); J03.90 Acute tonsillitis, unspecified | CPT/HCPCS: 87071; 87880 ==

== ENCOUNTER → 2019-10-29 08:17 | Outpatient (BNVA) | payer MEDICAID, SELFPAY | PROVIDERS: Visit Provider Psychiatry & Neurology Psychiatry | DX: F43.12 Post-traumatic stress disorder, chronic (principal); F33.2 Major depressive disorder, recurrent severe without psychotic features; F10.20 Alcohol dependence, uncomplicated | CPT/HCPCS: 99204 ==

== ENCOUNTER 2019-11-11 19:45 | Emergency (ER) | payer MEDICAID, SELFPAY ==
[2019-11-11 20:09] VITALS: BP 129/70; PULSE 86; RESP 16; TEMP 36.9; O2SAT 94; BMI 31.2
--- NOTE | 2019-11-11 21:48 | ED_ITS ---
HPI - General Adult General: Chief complaint: General Medical Stated complaint: left eye swollen/pain Time Seen by Provider: 11/11/19 21:45 History of Present Illness: HPI narrative: Patient is a 24-year-old female who comes to the ED with left eye redness, pain and drainage. Patient says symptoms started a little over a week ago and has continued to progress. She does not wear contacts and denies any injury, trauma or foreign body to the eye that started symptoms. She rates eye pain a 9 out of 10. She used some previously purchased [id number] pinkeye drops and that has not seemed to help. She says her eyelids have started to swell and now she is having some periorbital tenderness. Left eye has purulent drainage and every morning her left eye is sealed shut by the dried drainage. She is tried warm and cold compresses on the eye as well. She denies any fever or chills, nasal drainage or congestion, nausea/vomiting, dysuria, hematuria or bowel symptoms. Associated symptoms: Deny chest pain, dyspnea, headache(s), nausea, rash, palpitations or vomiting Review of Systems Const: Denies: fever, chills or fatigue Eyes: Reports: blurry vision (due to drainage and watery eyes), photophobia, eye discomfort, eye discharge (purulent drainage from left eye) and eye redness; Denies: change in vision ENMT: Denies: throat pain, painful swallowing, nasal discharge or nasal congestion Card: Denies: chest pain, palpitations, edema, swelling of feet/ankles, shortness of breath on exertion or shortness of breath when lying down Resp: Denies: shortness of breath, productive cough or non-productive cough GI: Denies: abdominal pain, nausea, vomiting, diarrhea, constipation or blood in stool : Denies: flank pain, painful urination or blood in urine Musc: Denies: neck pain, back pain or extremity swelling Skin/Breast: Denies: rash or new lesion Neuro: Denies: headache, numbness in extremities or weakness in extremities PFSH ED PFSH: Social History Smoking and tobacco status: current some day smoker Female Reproductive History: Date of last menstrual period: 10/16/19 Physical Exam Const: COMMON NORMALS: no apparent distress, oriented x3 and alert GENERAL APPEARANCE: cooperative HENMT: COMMON NORMALS: normocephalic HEAD & SCALP: normocephalic MOUTH: oral and palatal mucosa normal THROAT: posterior oropharynx normal and uvula midline Eye: COMMON NORMALS: PERRL and EOMs intact bilaterally PERIORBITAL: periorbital findings abnormal positive left periorbital swelling and periorbital tenderness EYELID: eyelid abnormal left upper eyelid lid margins crusty/scaly, swelling and tenderness and left lower eyelid lid margins crusty/scaly, swelling and tenderness CONJUNCTIVA: Yes conjunctiva abnormal positive left conjunctival injection and discharge purulent PUPIL: Yes PERRL Neck/C-Spine: COMMON NORMALS: supple GENERAL: Yes normal visual inspection Resp: COMMON NORMALS: normal respiratory effort, no retractions, no use of accessory muscles and clear to auscultation bilaterally AUSCULTATION: clear to auscultation bilaterally Cardio: COMMON NORMALS: regular rate, regular rhythm, S1 normal heart sound, S2 normal heart sound, no gallops, no clicks, no murmurs and peripheral pulses 2+ throughout RATE: regular rate RHYTHM: regular rhythm HEART SOUNDS: S1 normal and S2 normal PERIPHERAL PULSES: pulses 2+ throughout GI: COMMON NORMALS: normal to inspection, nondistended, normoactive bowel sounds, soft to palpation, non-tender and no masses PALPATION: Yes soft : COMMON NORMALS: Yes no CVA tenderness BLADDER/KIDNEY EXAM: Yes no CVA tenderness Back/Pelvis: COMMON NORMALS: no CVA tenderness Extremity: COMMON NORMALS: normal to inspection and no pedal edema Neuro: COMMON NORMALS: oriented x3 and moves all extremities SENSORIUM/ORIENTATION: Yes alert Skin: COMMON NORMALS: no rashes or lesions noted GENERAL SKIN EXAM: no rashes or lesions noted and dry skin Course Vital Signs: Vital signs: Vital Signs Temperature 98.4 F 11/11/19 20:09 Pulse Rate 74 11/11/19 23:36 Respiratory Rate 16 11/11/19 23:36 Blood Pressure 128/79 11/11/19 23:36 Pulse Oximetry 98 11/11/19 23:36 MDM - General Adult MDM Narrative: Medical decision making narrative: Patient is a 24-year-old female comes into the ED with left eye redness, pain, lid swelling and purulent discharge. Denies vision changes but says her left eye has some blurriness because of all the drainage and watering. Physical exam was remarkable for conjunctival injection, purulent drainage and upper and lower lid swelling of left eye. Erythromycin eye ointment and prednisone p.o. given here in the ED. Patient was also given a dose of hydrocodone for pain. I told patient to come back to the ED if within 2 days after applying erythromycin ointment and taking steroid she does not have any improvement. I gave her contact information for [facility] and told her to contact them tomorrow morning to set up an appointment as soon as possible. Patient understood and agreed with plan. Discharge Plan Discharge Patient Disposition: Home, Self-Care Clinical Impression: Acute bacterial conjunctivitis of left eye Condition: Stable Prescriptions: New erythromycin 5 mg/gram (0.5 %) ointment 1 applic ophthalmic (eye) Q6H Qty: 3.5 RF: 0 prednisone 50 mg tablet 50 mg PO DAILY 5 Days Qty: 5 RF: 0 No Action fluoxetine [Prozac] 20 mg capsule 20 mg PO DAILY Qty: 30 RF: 1 prazosin 5 mg capsule 5 mg PO .HS Qty: 30 RF: 1 mupirocin 2 % ointment 1 applic TOPICAL TID Qty: 22 RF: 0 amoxicillin 500 mg tablet 500 mg PO QID Qty: 40 RF: 0 Dramamine 50 mg Tablet 50 mg PO Q8H RF: 0 Prozac 20 mg RF: 0 Discharge Orders: Discharge Order (Routine); Ordered 11/11/19 Ordered By: Ronald Alvarez Discharge Diet: Regular Discharge Activity: Resume usual activity and Increase activity as tolerated Patient Instructions: Erythromycin (Into the eye) Activity Restrictions/Additional Instructions: Follow-up with eye doctor within the next 3 days for reevaluation. Return to ED for reevaluation if symptoms do not improve after 2 days of treatment. Take ibuprofen or Tylenol for pain. Take full course of prednisone as prescribed. Apply the erythromycin eye ointment on the left eye 4 times a day. Call eye doctor office tomorrow morning-[facility] . Discharge Date/Time: 11/11/19 23:37 Coding Level of Care Code ED [employer] Manager for Pascale Fwarian Exam Comprehensive
[2019-11-11] MEDS: erythromycin Op Oint 1 gm 1 APPLIC EYE-LEFT (23:29)
[2019-11-11] MEDS: predniSONE 20 mg Tablet 60 MG PO (23:29)
[2019-11-11] MEDS: HYDROcodone-acetaminophen 5-325 mg Tablet 1 TAB PO (23:29)
[2019-11-11 23:36] VITALS: BP 128/79; PULSE 74; RESP 16; O2SAT 98
== END 2019-11-11 23:37 | disposition home or self-care (01) ==
PROVIDERS: Emergency Provider Physician Assistant
DX: H10.32 Unspecified acute conjunctivitis, left eye (principal); F17.210 Nicotine dependence, cigarettes, uncomplicated
CPT/HCPCS: 12345; 99281; 99283; J7512

== ENCOUNTER → 2020-02-25 12:04 | Outpatient (BNVA) | payer MEDICAID, SELFPAY | PROVIDERS: Visit Provider Nurse Practitioner Family | DX: Z11.3 Encounter for screening for infections with a predominantly sexual mode of transmission (principal); N93.9 Abnormal uterine and vaginal bleeding, unspecified; R79.89 Other specified abnormal findings of blood chemistry | CPT/HCPCS: 80053; 84443; 84703; 85025; 87491; 87591; 87661 ==

== ENCOUNTER 2020-04-11 13:13 | Emergency (ER) | payer MEDICAID, SELFPAY ==
[2020-04-11 13:22] VITALS: BP 117/72; PULSE 88; RESP 14; TEMP 36.7; O2SAT 98; BMI 33.8
--- NOTE | 2020-04-11 13:47 | ED_ITS ---
HPI - General Adult General: Chief complaint: General Medical Stated complaint: cramping,wants to see if Time Seen by Provider: 04/11/20 13:29 History of Present Illness: HPI narrative: 25-year-old female presents emergency room complaining of some generalized abdominal discomfort. The nurses notes that it said she was cramping when I asked her about that she denied any specific cramping she is just more concerned that she is she said she tried several home tests and they were negative but she is convinced she is says she knows what it feels like to be and she feels that the tests are wrong wants to be rechecked she denies any vaginal bleeding no vomiting no diarrhea no respiratory symptoms Onset (ago): week(s) Severity: mild Pain Consistency: intermittent Relieving factors: none Exacerbating factors: none Associated symptoms: Deny chest pain, confusion, cough, diaphoresis, decreased appetite, dyspnea, fevers/chills, headache(s), malaise, nausea, rash, palpitations, seizures, short of breath, syncope, vomiting or weakness Treatments prior to arrival: none Review of Systems Const: Denies: malaise or diaphoresis ENMT: Denies: throat pain, ear or mastoid pain, nasal discharge or nasal congestion Card: Denies: chest pain, palpitations or syncope Resp: Denies: dyspnea GI: Denies: nausea or vomiting : Denies: flank pain, difficulty voiding, dysuria, urinary frequency or urinary urgency Skin/Breast: Denies: rash Neuro: Denies: headache(s) or confusion PFSH ED PFSH: Social History Smoking and tobacco status: former smoker Quit status (tobacco): has quit using tobacco Year quit tobacco: 2012 Former quit date comment: smoked approx 2-3 cigarrettes per day Second hand smoke exposure: No Alcohol intake: never Lives independently: Yes Household members: children Current occupational status: unemployed History of recent travel: No Current gender identity: Female Special deepti needs: No Agree to transfusion: Yes Female Reproductive History: Date of last menstrual period: 12/17/19 Physical Exam Const: COMMON NORMALS: no acute distress GENERAL APPEARANCE: cooperative and comfortable ORIENTATION/CONSCIOUSNESS: Yes awake, Yes oriented to person, Yes oriented to place and Yes oriented to time HENMT: COMMON NORMALS: normocephalic, atraumatic and hearing grossly normal bilaterally HEAD & SCALP: normocephalic and atraumatic Neck/C-Spine: COMMON NORMALS: no JVD Resp: COMMON NORMALS: normal respiratory effort, No retractions, No use of accessory muscles and clear to auscultation bilaterally AUSCULTATION: clear to auscultation bilaterally Cardio: COMMON NORMALS: no JVD, regular rate, regular rhythm and No murmurs present (Cardio) RATE: regular rate RHYTHM: regular rhythm GI: COMMON NORMALS: Soft to palpation and No hepatosplenomegaly present AUSCULTATION: Yes normoactive bowel sounds PALPATION: Yes Soft to palpation, No Tenderness to palpation present (GI), No Guarding due to palpation present (GI) and Yes No hepatosplenomegaly present Extremity: COMMON NORMALS: normal to inspection, capillary refill normal, no clubbing, cyanosis or edema, no calf tenderness and no pedal edema Neuro: SENSORIUM/ORIENTATION: Yes oriented to person, Yes oriented to place and Yes oriented to time Skin: COMMON NORMALS: no rashes or lesions noted GENERAL SKIN EXAM: no rashes or lesions noted Course Vital Signs: Vital signs: Vital Signs Temperature 98.0 F 04/11/20 13:22 Pulse Rate 88 04/11/20 13:22 Respiratory Rate 14 04/11/20 13:22 Blood Pressure 127/83 04/11/20 13:56 Pulse Oximetry 98 04/11/20 13:22 MDM - General Adult MDM Narrative: Medical decision making narrative: Urgency test negative follow-up with primary care doctor as needed reviewed other findings with the patient. Lab Data: Labs: Lab Results 04/11/20 04/11/20 04/11/20 Range/Units 13:56 14:25 14:25 WBC 5.2 (4.0-10.0) 10^3/ uL RBC 4.24 (4.1-5.3) 10^6/u L Hgb 12.8 (11.5-15.3) g/dL Hct 37.5 (37.0-47.0) % MCV 88.4 (81-99) fL MCH 30.2 (28.0-34.0) pg MCHC 34.1 (30.0-36.0) g/dL RDW 12.5 (12.1-15.1) % Plt Count 189 (130-400) 10^3/c mm MPV 11.0 H (7.4-10.4) fL Neut % (Auto) 53.6 % Lymph % (Auto) 33.3 % [place] % (Auto) 5.2 % Eos % (Auto) 6.5 % Baso % (Auto) 1.2 % Neut # (Auto) 2.79 (1.8-7.7) 10^3/u L Lymph # (Auto) 1.7 (0.8-4.8) 10^3/u L [place] # (Auto) 0.3 (0.2-0.9) 10^3/u L Eos # (Auto) 0.3 (0.0-0.8) 10^3/u L Baso # (Auto) 0.1 (0.0-0.1) 10^3/u L Nucleated RBC % (a uto) 0 % Nucleated RBCs # 0.0 /100WBC Sodium 138 (136-145) mmol/L Potassium 4.0 (3.5-5.1) mmol/L Chloride 105 (98-107) mmol/L Carbon Dioxide 23 (22-29) mmol/L Anion Gap 14.0 (5-19) BUN 11 (6-20) mg/dL Creatinine 0.7 (0.5-0.9) mg/dL GFR Calculation 100.4 (90-130) mL/min Glucose 117 H (65-115) mg/dL Calculated Osmolal ity 286 (285-295) mOsm/k g Calcium 9.3 (8.5-10.5) mg/dL Total Bilirubin 0.3 (0.15-1.2) mg/dL AST 25 (0-32) U/L ALT 31 (0-33) U/L Alkaline Phosphata se 89 (35-105) IU/L Total Protein 6.4 L (6.6-8.7) g/dL Albumin 4.4 (3.5-5.2) g/dL Globulin 2.0 (1.3-4.6) g/dL HCG, Qual (Negative) Urine Color Yellow (Yellow) Urine Appearance Sl hazy (CLEAR) Urine pH 5 (5-7) Ur Specific Gravit y 1.025 (1.005-1.030) Urine Protein Neg (Negative) Urine Glucose (UA) Norm (Normal) Urine Ketones Negative (Negative) Urine Blood 2+ H (Negative) Urine Nitrate Negative (Negative) Urine Bilirubin Neg (Negative) Urine Urobilinogen Norm (Negative) mg/dL Ur Leukocyte [place] 2+ H (Negative) Urine RBC 5-10 H (0-2) /hpf Urine WBC 5-10 H (0-5) /hpf Ur Squamous Epith Cells 5-10 H (0-5) /hpf Amorphous Sediment Not Reportable Urine Bacteria 2+ H (NONE) /hpf 04/11/20 Range/Units 14:25 WBC (4.0-10.0) 10^3/ uL RBC (4.1-5.3) 10^6/u L Hgb (11.5-15.3) g/dL Hct (37.0-47.0) % MCV (81-99) fL MCH (28.0-34.0) pg MCHC (30.0-36.0) g/dL RDW (12.1-15.1) % Plt Count (130-400) 10^3/c mm MPV (7.4-10.4) fL Neut % (Auto) % Lymph % (Auto) % [place] % (Auto) % Eos % (Auto) % Baso % (Auto) % Neut # (Auto) (1.8-7.7) 10^3/u L Lymph # (Auto) (0.8-4.8) 10^3/u L [place] # (Auto) (0.2-0.9) 10^3/u L Eos # (Auto) (0.0-0.8) 10^3/u L Baso # (Auto) (0.0-0.1) 10^3/u L Nucleated RBC % (a uto) % Nucleated RBCs # /100WBC Sodium (136-145) mmol/L Potassium (3.5-5.1) mmol/L Chloride (98-107) mmol/L Carbon Dioxide (22-29) mmol/L Anion Gap (5-19) BUN (6-20) mg/dL Creatinine (0.5-0.9) mg/dL GFR Calculation (90-130) mL/min Glucose (65-115) mg/dL Calculated Osmolal ity (285-295) mOsm/k g Calcium (8.5-10.5) mg/dL Total Bilirubin (0.15-1.2) mg/dL AST (0-32) U/L ALT (0-33) U/L Alkaline Phosphata se (35-105) IU/L Total Protein (6.6-8.7) g/dL Albumin (3.5-5.2) g/dL Globulin (1.3-4.6) g/dL HCG, Qual Negative (Negative) Urine Color (Yellow) Urine Appearance (CLEAR) Urine pH (5-7) Ur Specific Gravit y (1.005-1.030) Urine Protein (Negative) Urine Glucose (UA) (Normal) Urine Ketones (Negative) Urine Blood (Negative) Urine Nitrate (Negative) Urine Bilirubin (Negative) Urine Urobilinogen (Negative) mg/dL Ur Leukocyte [place] (Negative) Urine RBC (0-2) /hpf Urine WBC (0-5) /hpf Ur Squamous Epith Cells (0-5) /hpf Amorphous Sediment Urine Bacteria (NONE) /hpf Discharge Plan Discharge Patient Disposition: Home Clinical Impression: Amenorrhea Condition: Stable Prescriptions: No Action mupirocin 2 % ointment 1 applic TOPICAL TID Qty: 22 RF: 0 Discharge Orders: Discharge Order (Routine); Ordered 04/11/20 Ordered By: Say Harp Discharge Diet: Usual diet Discharge Activity: Increase activity as tolerated Activity Restrictions/Additional Instructions: Follow-up with your primary care doctor as needed Coding Level of Care Code ED Ornamental Rail Installer for Chg Fwd Exam Comprehensive
[2020-04-11 13:56] VITALS: BP 127/83
[2020-04-11 14:24] LABS: Specific Gravity, Urine 1.025 (1.005-1.030); Urine Appearance SL Hazy (CLEAR); Urine Color Yellow (Yellow); pH Urine 5 (5-7)
[2020-04-11 14:25] LABS: Add Urine Culture? Yes; Add Urine Microscopic? YES; Bacteria Urine 2+ /hpf; Bilirubin Urine Neg (Negative); Blood Urine 2+ (Negative); Glucose Urine UA Norm (Normal); Ketones Urine Negative (Negative); Leukocyte Esterase Urine 2+ (Negative); Nitrate Urine Negative (Negative); Protein Urine Neg (Negative); Urobilinogen Urine Norm (Negative)
[2020-04-11 14:34] LABS: Basophils # 0.1 10^3/uL (0.0-0.1); Basophils % 1.2 %; Eosinophils # 0.3 10^3/uL (0.0-0.8); Eosinophils % 6.5 %; Hematocrit 37.5 % (37.0-47.0); Hemoglobin 12.8 g/dL (11.5-15.3); Lymphocytes # 1.7 10^3/uL (0.8-4.8); Lymphocytes % 33.3 %; Mean Corpuscular HGB Conc 34.1 g/dL (30.0-36.0); Mean Corpuscular Hemoglobin 30.2 pg (28.0-34.0); Mean Corpuscular Volume 88.4 fL (81-99); Monocytes # 0.3 10^3/uL (0.2-0.9); Monocytes % 5.2 %; Neutrophils # 2.79 10^3/uL (1.8-7.7); Neutrophils % 53.6 %; Nucleated Red Blood Cells % 0 %; Platelet Count 189 10^3/cmm (130-400); Red Blood Count 4.24 10^6/uL (4.1-5.3); Red Cell Distribution Width 12.5 % (12.1-15.1); White Blood Count 5.2 10^3/uL (4.0-10.0)
[2020-04-11 14:48] LABS: HCG, Serum Qual Negative (Negative)
[2020-04-11 14:52] LABS: Alanine Aminotransferase 31 U/L (0-33); Albumin Level 4.4 g/dL (3.5-5.2); Alkaline Phosphatase 89 IU/L (35-105); Aspartate Amino Transferase 25 U/L (0-32); Blood Urea Nitrogen 11 mg/dL (6-20); Calcium 9.3 mg/dL (8.5-10.5); Carbon Dioxide 23 mmol/L (22-29); Chloride 105 mmol/L (98-107); Glomerular Filtration Rate 100.4 mL/min (90-130); Glucose 117 mg/dL (65-115); Osmolality Calculated 286 mOsm/kg (285-295); Sodium 138 mmol/L (136-145); Total Bilirubin 0.3 mg/dL (0.15-1.2); Total Protein 6.4 g/dL (6.6-8.7)
--- NOTE | 2020-04-13 10:09 | DCPLANNER ---
grain oilseed or pasture farm manager had message to schedule a follow up appointment for patient with [facility]. grain oilseed or pasture farm manager called the [facility], spoke with Nick, gave clinic patients information. Case manage was told that patients information would be printed and reviewed. Clinic will call patient with appointment information.
--- NOTE | 2020-04-14 09:50 | DCPLANNER ---
Patient has a follow up appointment scheduled for , April 23, 2020 at 10:[address] Erazo. Clinic will call patient with appointment information.
--- NOTE | 2020-04-24 18:10 | DCPLANNER ---
Patient had a follow up appointment scheduled for 04.23.20 with [facility] - patient did not attend appointment.
== END 2020-04-11 15:06 | disposition home or self-care (01) ==
PROVIDERS: Emergency Provider Family Medicine
DX: N91.2 Amenorrhea, unspecified (principal); Z32.02 Encounter for pregnancy test, result negative; Z87.891 Personal history of nicotine dependence
CPT/HCPCS: 12345; 80053; 81001; 84703; 85025; 87077; 87086; 87186; 99281; 99282

== ENCOUNTER 2020-08-31 18:28 | Emergency (ER) | payer MEDICAID, SELFPAY ==
[2020-08-31 19:08] VITALS: BP 118/85; PULSE 93; RESP 14; TEMP 37; O2SAT 99; BMI 32.1
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
[2020-08-31] MEDS: ketorolac 10 mg Tablet PO (19:59)
[2020-08-31] MEDS: cyclobenzaprine 10 mg Tablet PO (19:59)
[2020-08-31 20:21] VITALS: BP 126/86; PULSE 93; RESP 14; O2SAT 99
== END 2020-08-31 20:22 | disposition home or self-care (01) ==
PROVIDERS: Emergency Provider Nurse Practitioner Family
DX: S16.1XXA Strain of muscle, fascia and tendon at neck level, initial encounter (principal); Z87.891 Personal history of nicotine dependence; Y04.8XXA Assault by other bodily force, initial encounter
CPT/HCPCS: 72040; 99283

== ENCOUNTER 2020-09-19 09:32 | Emergency (ER) | payer MEDICAID, SELFPAY ==
[2020-09-19 09:33] VITALS: BP 143/66; PULSE 137; RESP 16; TEMP 36.6; O2SAT 99; BMI 31.2
--- NOTE | 2020-09-19 09:57 | ED_ITS ---
HPI - Abdominal Pain General: Chief Complaint: Abdominal Pain Stated Complaint: abdomen pain Time Seen by Provider: 09/19/20 09:44 Source: patient Mode of arrival: ambulatory Limitations: no limitations History of Present Illness: HPI narrative: 25-year-old female complaining of lower abdominal pain, mainly on the right, for the last 2 to 3 days. Started having nausea, vomiting, diarrhea yesterday. No fever. Pain is worse with movement and palpation. She has had similar symptoms in the past and was diagnosed with ovarian cysts. LMP was approximately 2 and half weeks ago. Denies recent alcohol intake. Associated Symptoms: Reports diarrhea, nausea and vomiting; Denies chills and dysuria Related Data: Date of Last Menstrual Period: 12/17/19 Review of Systems General: Reports: 10 or more systems reviewed and unremarkable except in HPI and below Const: Reports: change in appetite; Denies: fever(s), chills, body aches, fatigue, malaise or night sweats Eyes: Denies: change in vision, blurry vision or blind spots ENMT: Denies: throat pain or odynophagia Card: Denies: chest pain, irregular heart rhythm or lightheadedness Resp: Denies: dyspnea, productive cough or non-productive cough GI: Reports: abdominal pain, nausea, vomiting and diarrhea : Denies: flank pain, difficulty voiding, dysuria, urinary frequency, genit al lesions, vaginal dryness, vaginal odor, vaginal bleeding or vaginal discharge Musc: Denies: neck pain, back pain, extremity pain or extremity swelling Skin/Breast: Denies: rash, pruritus or erythema Neuro: Denies: headache(s), numbness in extremities, weakness in extremities, vertigo or confusion Endo: Denies: polyuria or polydipsia Bonifacio/Lymph: Denies: easy bruising or easy bleeding PFSH ED PFSH: Social History Smoking and tobacco status: former smoker Quit status (tobacco): has quit using tobacco Year quit tobacco: 2012 Former quit date comment: smoked approx 2-3 cigarrettes per day Second hand smoke exposure: No Alcohol intake: never Lives independently: Yes Household members: children Current occupational status: unemployed History of recent travel: No Current gender identity: Female Special deepti needs: No Agree to transfusion: Yes Female Reproductive History: Date of last menstrual period: 12/17/19 Physical Exam Const: COMMON NORMALS: no acute distress and patient oriented x3 GENERAL APPEARANCE: not in distress, not ill appearing and not frail appearing NUTRITIONAL APPEARANCE: overweight ORIENTATION/CONSCIOUSNESS: Yes awake HENMT: COMMON NORMALS: normocephalic and atraumatic HEAD & SCALP: normocephalic and atraumatic FACE & SINUS: normal facial exam and face symmetric Eye: COMMON NORMALS: Equal, round and reactive pupils present, EOMs intact bilaterally and conjunctivae normal CONJUNCTIVA: Yes conjunctivae normal PUPIL: Yes Equal, round and reactive pupils present Neck/C-Spine: COMMON NORMALS: full ROM, no lymphadenopathy and supple Lymph: LYMPHATIC: no lymphadenopathy noted Resp: COMMON NORMALS: normal respiratory effort, No retractions, No use of accessory muscles and clear to auscultation bilaterally AUSCULTATION: clear to auscultation bilaterally Cardio: COMMON NORMALS: regular rate, regular rhythm, S1 normal heart sound present and S2 normal heart sound present RATE: regular rate RHYTHM: regular rhythm HEART SOUNDS: S1 normal heart sound present and S2 normal heart sound present GI: COMMON NORMALS: Normal to inspection, nondistended, normoactive bowel sounds present and Soft to palpation PALPATION: Yes Soft to palpation, Yes Tenderness to palpation present (GI) Details: RLQ, No Guarding due to palpation present (GI), No Rigid due to palpation, No Hepatomegaly present, No Palpable mass present, Yes Rebound tenderness present Details: McBurney's point and Yes Other GI palpation findings present : EXTERNAL FEMALE EXAM: Yes normal appearance of the urethra SPECULUM EXAM - VAGINA: No erythematous, No foreign body, No vaginal bleeding and Yes Vaginal discharge present Vaginal discharge present: white and yellow SPECULUM EXAM - CERVIX: Yes Cervical os closed, No Abnormal cervical discharge present, No Cervical lesion present, No Cervical mass present, No Cervical laceration present, No Nabothian cyst present and Yes Cervical tenderness present BIMANUAL EXAM - VAGINA & UTERUS: No cervical motion tenderness and Yes Cervical tenderness present BIMANUAL EXAM - ADNEXA, OTHER: Yes tender bilaterally OB/EXTERNAL & SPECULUM: no foreign bodies and vaginal bleeding Extremity: COMMON NORMALS: normal to inspection, full ROM and no clubbing, cyanosis or edema Neuro: COMMON NORMALS: patient oriented x3 Psych: COMMON NORMALS: mental status grossly normal, Normal thought process present and cooperative THOUGHT PROCESS: Normal thought process present Skin: COMMON NORMALS: no rashes or lesions noted and no wounds GENERAL SKIN EXAM: no rashes or lesions noted Course Vital Signs: Vital signs: Vital Signs Temperature 97.9 F 09/19/20 09:33 Pulse Rate 95 09/19/20 13:37 Respiratory Rate 16 09/19/20 13:37 Blood Pressure 105/64 09/19/20 13:37 Pulse Oximetry 98 09/19/20 13:37 MDM - Abdominal Pain MDM Narrative: Medical decision making narrative: 25-year-old female with right lower quadrant pain, nausea, vomiting for 2 to 3 days. No fever. Lab work unremarkable other than slightly elevated CRP. Urinalysis heavily contaminated. No CMT or purulent cervical discharge on pelvic exam. Wet prep : Moderate clue cells. CT abdomen pelvis?normal appendix, 2.6 involuting right ovarian cyst. No sign of inflammatory process in the right lower quadrant. Zofran, metronidazole, follow-up with PCP in 3 to 5 days. Ibuprofen and Tylenol for pain, strict warnings to return immediately for sudden worsening pain, fever, inability to keep down liquids.ly Differential Diagnosis: Differential diagnosis abdominal pain: Likely abdominal pain, acute appendicitis, diverticulitis, endometriosis, gastroenteritis and small bowel obstruction Medical Records: Attestation: I reviewed the patient's medical records. Lab Data: Attestation: I reviewed the patient's lab results. Labs: Lab Results 09/19/20 09/19/20 09/19/20 Range/Units 10:00 10:00 10:00 WBC 6.3 (4.0-10.0) 10^3/ uL RBC 5.11 (4.1-5.3) 10^6/u L Hgb 15.1 (11.5-15.3) g/dL Hct 45.1 (37.0-47.0) % MCV 88.3 (81-99) fL MCH 29.5 (28.0-34.0) pg MCHC 33.5 (30.0-36.0) g/dL RDW 12.9 (12.1-15.1) % Plt Count 178 (130-400) 10^3/c mm MPV 11.0 H (7.4-10.4) fL Neut % (Auto) 89.3 % Lymph % (Auto) 5.4 % [place] % (Auto) 4.0 % Eos % (Auto) 0.5 % Baso % (Auto) 0.5 % Neut # (Auto) 5.62 (1.8-7.7) 10^3/u L Lymph # (Auto) 0.3 L (0.8-4.8) 10^3/u L [place] # (Auto) 0.3 (0.2-0.9) 10^3/u L Eos # (Auto) 0.0 (0.0-0.8) 10^3/u L Baso # (Auto) 0.0 (0.0-0.1) 10^3/u L Nucleated RBC % (a uto) 0 % Nucleated RBCs # 0.0 /100WBC Sodium 135 L (136-145) mmol/L Potassium 3.8 (3.5-5.1) mmol/L Chloride 97 L (98-107) mmol/L Carbon Dioxide 22 (22-29) mmol/L Anion Gap 19.8 H (5-19) BUN 18 (6-20) mg/dL Creatinine 0.7 (0.5-0.9) mg/dL GFR Calculation 100.4 (90-130) mL/min Glucose 117 H (65-115) mg/dL Calculated Osmolal ity 283 L (285-295) mOsm/k g Calcium 9.3 (8.5-10.5) mg/dL Magnesium 1.8 (1.7-2.3) mg/dL Total Bilirubin 0.9 (0.15-1.2) mg/dL AST 18 (0-32) U/L ALT 17 (0-33) U/L Alkaline Phosphata se 74 (35-105) IU/L C-Reactive Protein (0.0-4.9) mg/L Total Protein 7.8 (6.6-8.7) g/dL Albumin 4.9 (3.5-5.2) g/dL Globulin 2.9 (1.3-4.6) g/dL Lipase 16 (13-60) U/L HCG, Qual Negative (Negative) Urine Color (Yellow) Urine Appearance (CLEAR) Urine pH (5-7) Ur Specific Gravit y (1.005-1.030) Urine Protein (Negative) Urine Glucose (UA) (Normal) Urine Ketones (Negative) Urine Blood (Negative) Urine Nitrate (Negative) Urine Bilirubin (Negative) Urine Urobilinogen (Negative) mg/dL Ur Leukocyte Lena ase (Negative) Urine RBC (0-2) /hpf Urine WBC (0-5) /hpf Ur Squamous Epith Cells (0-5) /hpf Amorphous Sediment Urine Bacteria (NONE) /hpf Urine Mucus /hpf Urine Opiates Scre en (Negative) ng/mL Ur Barbiturates Sc reen (Negative) ng/mL Ur Phencyclidine S crn (Negative) ng/mL Ur Amphetamines Sc reen (Negative) ng/mL U Benzodiazepines Scrn (Negative) ng/mL Urine Cocaine Scre en (Negative) ng/mL U Marijuana (THC) Screen (Negative) ng/mL Ethyl Alcohol < 10 (0-10) mg/dL 09/19/20 09/19/20 09/19/20 Range/Units 10:00 10:00 10:00 WBC (4.0-10.0) 10^3/ uL RBC (4.1-5.3) 10^6/u L Hgb (11.5-15.3) g/dL Hct (37.0-47.0) % MCV (81-99) fL MCH (28.0-34.0) pg MCHC (30.0-36.0) g/dL RDW (12.1-15.1) % Plt Count (130-400) 10^3/c mm MPV (7.4-10.4) fL Neut % (Auto) % Lymph % (Auto) % [place] % (Auto) % Eos % (Auto) % Baso % (Auto) % Neut # (Auto) (1.8-7.7) 10^3/u L Lymph # (Auto) (0.8-4.8) 10^3/u L [place] # (Auto) (0.2-0.9) 10^3/u L Eos # (Auto) (0.0-0.8) 10^3/u L Baso # (Auto) (0.0-0.1) 10^3/u L Nucleated RBC % (a uto) % Nucleated RBCs # /100WBC Sodium (136-145) mmol/L Potassium (3.5-5.1) mmol/L Chloride (98-107) mmol/L Carbon Dioxide (22-29) mmol/L Anion Gap (5-19) BUN (6-20) mg/dL Creatinine (0.5-0.9) mg/dL GFR Calculation (90-130) mL/min Glucose (65-115) mg/dL Calculated Osmolal ity (285-295) mOsm/k g Calcium (8.5-10.5) mg/dL Magnesium (1.7-2.3) mg/dL Total Bilirubin (0.15-1.2) mg/dL AST (0-32) U/L ALT (0-33) U/L Alkaline Phosphata se (35-105) IU/L C-Reactive Protein 12.7 H (0.0-4.9) mg/L Total Protein (6.6-8.7) g/dL Albumin (3.5-5.2) g/dL Globulin (1.3-4.6) g/dL Lipase (13-60) U/L HCG, Qual (Negative) Urine Color Yellow (Yellow) Urine Appearance Hazy A (CLEAR) Urine pH 5 (5-7) Ur Specific Gravit y 1.030 (1.005-1.030) Urine Protein Neg (Negative) Urine Glucose (UA) Norm (Normal) Urine Ketones 1+ H (Negative) Urine Blood 2+ H (Negative) Urine Nitrate Negative (Negative) Urine Bilirubin 1+ H (Negative) Urine Urobilinogen Norm (Negative) mg/dL Ur Leukocyte Lena ase 1+ H (Negative) Urine RBC 5-10 H (0-2) /hpf Urine WBC 15-25 H (0-5) /hpf Ur Squamous Epith Cells 25-40 H (0-5) /hpf Amorphous Sediment Not Reportable Urine Bacteria 2+ H (NONE) /hpf Urine Mucus 1+ /hpf Urine Opiates Scre en Negative (Negative) ng/mL Ur Barbiturates Sc reen Negative (Negative) ng/mL Ur Phencyclidine S crn Negative (Negative) ng/mL Ur Amphetamines Sc reen Negative (Negative) ng/mL U Benzodiazepines Scrn Negative (Negative) ng/mL Urine Cocaine Scre en Negative (Negative) ng/mL U Marijuana (THC) Screen Negative (Negative) ng/mL Ethyl Alcohol (0-10) mg/dL Discharge Plan Discharge Patient Disposition: Home Clinical Impression: Bacterial vaginosis Abdominal pain Qualifiers: Abdominal location: right lower quadrant Qualified Code(s): R10.31 - Right lower quadrant pain Ovarian cyst Qualifiers: Laterality: right Qualified Code(s): N83.201 - Unspecified ovarian cyst, right side Condition: Stable Prescriptions: New ondansetron 8 mg tablet,disintegrating 8 mg PO Q8H PRN (Reason: nausea and vomiting) 5 Days Qty: 30 RF: 0 Flagyl 500 mg tablet 500 mg PO BID 7 Days Qty: 14 RF: 0 No Action mupirocin 2 % ointment 1 applic TOPICAL TID Qty: 22 RF: 0 ketorolac 10 mg tablet 10 mg PO Q6H PRN (Reason: pain) Qty: 10 RF: 0 cyclobenzaprine 5 mg tablet 5 mg PO TID PRN (Reason: muscle spasm) Qty: 10 RF: 0 Dramamine 50 mg Tablet 50 mg PO PRN PRN (Reason: MOTION SICKNESS/NAUSEA) RF: 0 Discharge Orders: Discharge ED (Routine); Ordered 09/19/20 Ordered By: Joelle Pedroza Discharge Diet: Advance as tolerated Discharge Activity: Increase activity as tolerated Patient Instructions: Bacterial Vaginosis (ED), Ovarian Cyst (ED), Opioid Safety Activity Restrictions/Additional Instructions: Make sure to drink plenty of fluids, rest, take [id number] Tylenol or ibuprofen for pain. Call to schedule follow-up appoint with your primary care doctor in the next 3 days for recheck. Return immediately to the ER if you develop worsening pain, or if you develop fever. Also return immediately if you are unable to keep down liquids. Coding Level of Care Code ED Crime Scene Technician for Pascale Lopes
[2020-09-19 10:02] VITALS: BP 129/70; PULSE 113; RESP 20; O2SAT 98
[2020-09-19 10:14] LABS: Basophils % 0.5 %; Eosinophils % 0.5 %; Hematocrit 45.1 % (37.0-47.0); Hemoglobin 15.1 g/dL (11.5-15.3); Lymphocytes # 0.3 10^3/uL (0.8-4.8); Lymphocytes % 5.4 %; Mean Corpuscular HGB Conc 33.5 g/dL (30.0-36.0); Mean Corpuscular Hemoglobin 29.5 pg (28.0-34.0); Mean Corpuscular Volume 88.3 fL (81-99); Monocytes # 0.3 10^3/uL (0.2-0.9); Neutrophils # 5.62 10^3/uL (1.8-7.7); Neutrophils % 89.3 %; Nucleated Red Blood Cells % 0 %; Platelet Count 178 10^3/cmm (130-400); Red Blood Count 5.11 10^6/uL (4.1-5.3); Red Cell Distribution Width 12.9 % (12.1-15.1); White Blood Count 6.3 10^3/uL (4.0-10.0)
[2020-09-19] MEDS: lactated ringers 1,000 ML 999 ML IV (10:15)
[2020-09-19] MEDS: ondansetron 2 mg/ML SDV 2 mL 4 MG IVP (10:15)
[2020-09-19 10:31] LABS: HCG Qualitative Urine. Negative (Negative)
[2020-09-19 10:46] LABS: Alanine Aminotransferase 17 U/L (0-33); Albumin Level 4.9 g/dL (3.5-5.2); Alkaline Phosphatase 74 IU/L (35-105); Anion Gap 19.8 (5-19); Aspartate Amino Transferase 18 U/L (0-32); Blood Urea Nitrogen 18 mg/dL (6-20); Calcium 9.3 mg/dL (8.5-10.5); Carbon Dioxide 22 mmol/L (22-29); Chloride 97 mmol/L (98-107); Globulin 2.9 g/dL (1.3-4.6); Glomerular Filtration Rate 100.4 mL/min (90-130); Glucose 117 mg/dL (65-115); Lipase 16 U/L (13-60); Magnesium 1.8 mg/dL (1.7-2.3); Osmolality Calculated 283 mOsm/kg (285-295); Potassium 3.8 mmol/L (3.5-5.1); Sodium 135 mmol/L (136-145); Total Bilirubin 0.9 mg/dL (0.15-1.2); Total Protein 7.8 g/dL (6.6-8.7)
[2020-09-19] MEDS: ketorolac 30 mg/mL INJ 15 MG IVP (10:48)
[2020-09-19 10:49] LABS: Amphetamines Screen Urine Negative (Negative); Barbiturates Screen Urine Negative (Negative); Benzodiazepines Screen Urine Negative (Negative); Cocaine Screen Urine Negative (Negative); Opiate Screen Urine Negative (Negative); PCP Screen Urine Negative (Negative); THC Screen Urine Negative (Negative)
[2020-09-19 10:50] LABS: Bilirubin Urine 1+ (Negative); Blood Urine 2+ (Negative); Glucose Urine UA Norm (Normal); Ketones Urine 1+ (Negative); Leukocyte Esterase Urine 1+ (Negative); Nitrate Urine Negative (Negative); Protein Urine Neg (Negative); Urine Appearance Hazy (CLEAR); Urine Color Yellow (Yellow); Urobilinogen Urine Norm (Negative); pH Urine 5 (5-7)
[2020-09-19 10:51] LABS: Add Urine Microscopic? YES
[2020-09-19 10:53] LABS: Squamous Epithelial Cell Urine 25-40 /hpf (0-5); WBC Urine 15-25 /hpf (0-5)
[2020-09-19 10:54] LABS: Bacteria Urine 2+ /hpf; Mucus Urine 1+ /hpf
[2020-09-19 10:55] LABS: Add Urine Culture? No
[2020-09-19 10:57] LABS: Alcohol Level < 10 mg/dL (0-10)
[2020-09-19 11:02] VITALS: BP 106/64; PULSE 98; RESP 18; O2SAT 98
[2020-09-19 11:12] LABS: C Reactive Protein 12.7 mg/L (0.0-4.9)
--- NOTE | 2020-09-19 12:04 | CTR_ITS ---
PROCEDURE INFORMATION: Exam: CT Abdomen And Pelvis With Contrast Exam date and time: 09/19/2020 12:25 PM Age: 25 years old Clinical indication: Abdominal pain; Localized; Right lower quadrant (rlq); Additional info: Rlq pain, vomiting TECHNIQUE: Imaging protocol: Computed tomography of the abdomen and pelvis with contrast. Radiation optimization: All CT scans at this facility use at least one of these dose optimization techniques: automated exposure control; mA and/or kV adjustment per patient size (includes targeted exams where dose is matched to clinical indication); or iterative reconstruction. Contrast material: OMNI 300; Contrast volume: 95 ml; Contrast route: INTRAVENOUS (IV); COMPARISON: CT abdomen pelvis w con* [id number] 09/08/2019 9:37 PM RADIATION DOSE METRICS: Total DLP (mGy-cm): 1449.68 FINDINGS: Liver: Normal. No mass. Gallbladder and bile ducts: Normal. No calcified stones. No ductal dilation. Pancreas: Normal. No ductal dilation. Spleen: Normal. No splenomegaly. Adrenal glands: Normal. No mass. Kidneys and ureters: Normal. No hydronephrosis. Stomach and bowel: Unremarkable. No obstruction. No mucosal thickening. Appendix: No evidence of appendicitis. Intraperitoneal space: Unremarkable. No free air. No significant fluid collection. Vasculature: Unremarkable. No abdominal aortic aneurysm. Lymph nodes: Unremarkable. No enlarged lymph nodes. Urinary bladder: Unremarkable as visualized. Reproductive: An involuting right ovarian cyst measuring 2.6 cm is noted. Bones/joints: Unremarkable. No acute fracture. Soft tissues: Unremarkable. CT/CT abdomen pelvis w con* [id number] IMPRESSION: No acute intra-abdominal or intrapelvic pathology. Radiation Dose CTDIVOL = (mGy): DLP = 1449.68 (mGy-cm)
[2020-09-19] MEDS: iohexol 300 mg/mL 100 mL Btl IV (12:34)
[2020-09-19 13:00] VITALS: BP 105/64; PULSE 95; RESP 16; O2SAT 98
[2020-09-19 13:37] VITALS: BP 105/64; PULSE 95; RESP 16; O2SAT 98
== END 2020-09-19 13:45 | disposition home or self-care (01) ==
PROVIDERS: Emergency Provider Family Medicine
DX: N76.0 Acute vaginitis (principal); N83.201 Unspecified ovarian cyst, right side; Z87.891 Personal history of nicotine dependence
CPT/HCPCS: 74177; 80053; 80306; 80307; 81001; 81025; 83690; 83735; 85025; 86140; 87210; 96361; 96374; 96375; 99284; J1885; J2405; Q9967

== ENCOUNTER 2021-01-17 03:40 | Emergency (ER) | payer MEDICAID, SELFPAY ==
[2021-01-17 03:48] VITALS: BP 115/75; PULSE 88; RESP 16; TEMP 36.7; O2SAT 100; BMI 32.2
[2021-01-17 04:47] LABS: Add Urine Microscopic? YES; Bilirubin Urine Neg (Negative); Blood Urine 3+ (Negative); Glucose Urine UA Norm (Normal); Ketones Urine Negative (Negative); Leukocyte Esterase Urine Negative (Negative); Nitrate Urine Negative (Negative); Protein Urine Trace (Negative); Specific Gravity, Urine 1.025 (1.005-1.030); Urine Appearance SL Hazy (CLEAR); Urine Color Yellow (Yellow); Urobilinogen Urine Norm (Negative); pH Urine 5 (5-7)
[2021-01-17 04:48] LABS: Bacteria Urine TRACE /hpf; Squamous Epithelial Cell Urine 0-4 /hpf (0-5)
[2021-01-17 04:50] VITALS: BP 106/77; PULSE 77; RESP 16; O2SAT 97
[2021-01-17] MEDS: sodium chloride 0.9% 1,000 ML 999 ML IV (04:50)
[2021-01-17 04:58] LABS: Basophils % 0.6 %; Eosinophils # 0.2 10^3/uL (0.0-0.8); Eosinophils % 5.5 %; Hemoglobin 12.9 g/dL (11.5-15.3); Lymphocytes # 1.7 10^3/uL (0.8-4.8); Lymphocytes % 48.1 %; Mean Corpuscular HGB Conc 34.9 g/dL (30.0-36.0); Mean Corpuscular Hemoglobin 30.6 pg (28.0-34.0); Mean Corpuscular Volume 87.7 fL (81-99); Mean Platelet Volume 10.7 fL (7.4-10.4); Monocytes # 0.2 10^3/uL (0.2-0.9); Monocytes % 4.4 %; Neutrophils # 1.49 10^3/uL (1.8-7.7); Neutrophils % 41.1 %; Nucleated Red Blood Cells % 0 %; Platelet Count 137 10^3/cmm (130-400); Red Blood Count 4.22 10^6/uL (4.1-5.3); Red Cell Distribution Width 12.7 % (12.1-15.1); White Blood Count 3.6 10^3/uL (4.0-10.0)
[2021-01-17 05:46] LABS: Alanine Aminotransferase 78 U/L (0-33); Albumin Level 4.5 g/dL (3.5-5.2); Alkaline Phosphatase 77 IU/L (35-105); Anion Gap 13.6 (5-19); Aspartate Amino Transferase 48 U/L (0-32); Blood Urea Nitrogen 10 mg/dL (6-20); Calcium 8.8 mg/dL (8.5-10.5); Carbon Dioxide 23 mmol/L (22-29); Chloride 99 mmol/L (98-107); Globulin 2.1 g/dL (1.3-4.6); Glomerular Filtration Rate 100.4 mL/min (90-130); Glucose 104 mg/dL (65-115); Osmolality Calculated 273 mOsm/kg (285-295); Potassium 3.6 mmol/L (3.5-5.1); Sodium 132 mmol/L (136-145); Total Bilirubin 0.5 mg/dL (0.15-1.2); Total Protein 6.6 g/dL (6.6-8.7)
[2021-01-17 06:00] VITALS: BP 99/68; PULSE 72; RESP 17; O2SAT 99
--- NOTE | 2021-01-17 06:28 | W.ED.FEMALGU ---
HPI - Female Genitourinary General: Chief complaint: Vaginal Bleeding Stated complaint: Abd Pain\Bleed Vaginally\\Surgery Time Seen by Provider: 01/17/21 04:15 History of Present Illness: HPI Narrative: 25-year-old female, who believes she is around 6 weeks . She is experiencing some bleeding vaginally with some mainly right-sided cramping in her pelvis. No other discharge. No passage of tissue or clots. She has not had an ultrasound. MD elicited complaint: vaginal bleeding and pelvic pain Pertinent past history: prior miscarriages Onset (ago): hour(s) Location of symptoms: suprapubic and RLQ Female Urogenital Radiation: Non-Radiating Quality of pain: cramping Consistency: intermittent Vaginal discharge: none Vaginal bleeding: dark red Exacerbating factors: movement Relieving factors: none Associated symptoms: Reports abdominal pain, nausea and vaginal bleeding; Deny fevers/chills or headache(s) Possible : at home test positive Date of Last Menstrual Period: 12/13/20 Review of Systems Const: Denies: fever(s) or chills Card: Denies: chest pain Resp: Denies: dyspnea GI: Reports: abdominal pain and nausea Skin/Breast: Denies: rash Neuro: Denies: headache(s) PFSH ED PFSH: Social History Smoking and tobacco status: former smoker Quit status (tobacco): has quit using tobacco Year quit tobacco: 2012 Former quit date comment: smoked approx 2-3 cigarrettes per day Second hand smoke exposure: No Alcohol intake: never Lives independently: Yes Household members: children Current occupational status: unemployed History of recent travel: No Current gender identity: Female Special deepti needs: No Agree to transfusion: Yes Female Reproductive History: Date of last menstrual period: 12/13/20 Physical Exam Const: COMMON NORMALS: no acute distress, patient oriented x3 and alert GENERAL APPEARANCE: cooperative HENMT: COMMON NORMALS: normocephalic HEAD & SCALP: normocephalic Eye: COMMON NORMALS: Equal, round and reactive pupils present and EOMs intact bilaterally PUPIL: Yes Equal, round and reactive pupils present Chest: COMMONS NORMALS: normal inspection of the chest Resp: COMMON NORMALS: normal respiratory effort, No use of accessory muscles and clear to auscultation bilaterally AUSCULTATION: clear to auscultation bilaterally GI: COMMON NORMALS: Normal to inspection, nondistended, normoactive bowel sounds present and Soft to palpation PALPATION: Yes Soft to palpation and Yes Tenderness to palpation present (GI) (Suprapubic) Details: RLQ : SPECULUM EXAM - VAGINA: Yes vaginal bleeding OB/EXTERNAL & SPECULUM: vaginal bleeding Neuro: COMMON NORMALS: patient oriented x3 SENSORIUM/ORIENTATION: Yes alert Course Vital Signs: Vital signs: Vital Signs Temperature 98.1 F 01/17/21 03:48 Pulse Rate 72 01/17/21 06:00 Respiratory Rate 17 01/17/21 06:00 Blood Pressure 99/68 01/17/21 06:00 Pulse Oximetry 99 01/17/21 06:00 MDM - Female MDM Narrative: Medical decision making narrative: 25-year-old female. She is experiencing some abdominal cramping, and light vaginal bleeding. No passage of tissue or clots. Ultrasound reveals a gestational sac measuring 6 weeks 3 days. Her serum quant level is appropriate with this. No definite pole or heart rate found. She was told to repeat her quantitative hCG on Monday (in 2 days) and a case management referral has been made to obstetrics. Her doubling time is appropriate, will repeat an ultrasound at a later date. She knows to return for any other warning signs. Lab Data: Labs: Lab Results 01/17/21 01/17/21 01/17/21 Range/Units 04:14 04:50 04:50 WBC 3.6 L (4.0-10.0) 10^3/ uL RBC 4.22 (4.1-5.3) 10^6/u L Hgb 12.9 (11.5-15.3) g/dL Hct 37.0 (37.0-47.0) % MCV 87.7 (81-99) fL MCH 30.6 (28.0-34.0) pg MCHC 34.9 (30.0-36.0) g/dL RDW 12.7 (12.1-15.1) % Plt Count 137 (130-400) 10^3/c mm MPV 10.7 H (7.4-10.4) fL Neut % (Auto) 41.1 % Lymph % (Auto) 48.1 % [place] % (Auto) 4.4 % Eos % (Auto) 5.5 % Baso % (Auto) 0.6 % Neut # (Auto) 1.49 L (1.8-7.7) 10^3/u L Lymph # (Auto) 1.7 (0.8-4.8) 10^3/u L [place] # (Auto) 0.2 (0.2-0.9) 10^3/u L Eos # (Auto) 0.2 (0.0-0.8) 10^3/u L Baso # (Auto) 0.0 (0.0-0.1) 10^3/u L Nucleated RBC % (a uto) 0 % Nucleated RBCs # 0.0 /100WBC Sodium 132 L (136-145) mmol/L Potassium 3.6 (3.5-5.1) mmol/L Chloride 99 (98-107) mmol/L Carbon Dioxide 23 (22-29) mmol/L Anion Gap 13.6 (5-19) BUN 10 (6-20) mg/dL Creatinine 0.7 (0.5-0.9) mg/dL GFR Calculation 100.4 (90-130) mL/min Glucose 104 (65-115) mg/dL Calculated Osmolal ity 273 L (285-295) mOsm/k g Calcium 8.8 (8.5-10.5) mg/dL Total Bilirubin 0.5 (0.15-1.2) mg/dL AST 48 H (0-32) U/L ALT 78 H (0-33) U/L Alkaline Phosphata se 77 (35-105) IU/L Total Protein 6.6 (6.6-8.7) g/dL Albumin 4.5 (3.5-5.2) g/dL Globulin 2.1 (1.3-4.6) g/dL Ser , [place]Qnt 88577.00 mIU/mL Urine Color Yellow (Yellow) Urine Appearance Sl hazy (CLEAR) Urine pH 5 (5-7) Ur Specific Gravit y 1.025 (1.005-1.030) Urine Protein Trace (Negative) Urine Glucose (UA) Norm (Normal) Urine Ketones Negative (Negative) Urine Blood 3+ H (Negative) Urine Nitrate Negative (Negative) Urine Bilirubin Neg (Negative) Urine Urobilinogen Norm (Negative) mg/dL Ur Leukocyte Lena ase Negative (Negative) Urine RBC 5-10 H (0-2) /hpf Urine WBC None (0-5) /hpf Ur Squamous Epith Cells 0-4 H (0-5) /hpf Amorphous Sediment Not Reportable Urine Bacteria Trace (NONE) /hpf Blood Type Rho(D) Type 01/17/21 Range/Units 04:50 WBC (4.0-10.0) 10^3/ uL RBC (4.1-5.3) 10^6/u L Hgb (11.5-15.3) g/dL Hct (37.0-47.0) % MCV (81-99) fL MCH (28.0-34.0) pg MCHC (30.0-36.0) g/dL RDW (12.1-15.1) % Plt Count (130-400) 10^3/c mm MPV (7.4-10.4) fL Neut % (Auto) % Lymph % (Auto) % [place] % (Auto) % Eos % (Auto) % Baso % (Auto) % Neut # (Auto) (1.8-7.7) 10^3/u L Lymph # (Auto) (0.8-4.8) 10^3/u L [place] # (Auto) (0.2-0.9) 10^3/u L Eos # (Auto) (0.0-0.8) 10^3/u L Baso # (Auto) (0.0-0.1) 10^3/u L Nucleated RBC % (a uto) % Nucleated RBCs # /100WBC Sodium (136-145) mmol/L Potassium (3.5-5.1) mmol/L Chloride (98-107) mmol/L Carbon Dioxide (22-29) mmol/L Anion Gap (5-19) BUN (6-20) mg/dL Creatinine (0.5-0.9) mg/dL GFR Calculation (90-130) mL/min Glucose (65-115) mg/dL Calculated Osmolal ity (285-295) mOsm/k g Calcium (8.5-10.5) mg/dL Total Bilirubin (0.15-1.2) mg/dL AST (0-32) U/L ALT (0-33) U/L Alkaline Phosphata se (35-105) IU/L Total Protein (6.6-8.7) g/dL Albumin (3.5-5.2) g/dL Globulin (1.3-4.6) g/dL Ser , Mario i-Qnt mIU/mL Urine Color (Yellow) Urine Appearance (CLEAR) Urine pH (5-7) Ur Specific Gravit y (1.005-1.030) Urine Protein (Negative) Urine Glucose (UA) (Normal) Urine Ketones (Negative) Urine Blood (Negative) Urine Nitrate (Negative) Urine Bilirubin (Negative) Urine Urobilinogen (Negative) mg/dL Ur Leukocyte Lena ase (Negative) Urine RBC (0-2) /hpf Urine WBC (0-5) /hpf Ur Squamous Epith Cells (0-5) /hpf Amorphous Sediment Urine Bacteria (NONE) /hpf Blood Type O Positive Rho(D) Type Positive / 4+ Discharge Plan Discharge Patient Disposition: Home Clinical Impression: Threatened Condition: Stable Prescriptions: No Action amoxicillin-pot clavulanate [Augmentin] 875-125 mg tablet 1 tab PO BID 10 Days Qty: 20 RF: 0 Dramamine 50 mg Tablet 50 mg PO PRN PRN (Reason: MOTION SICKNESS/NAUSEA) RF: 0 Discharge Orders: Discharge ED (Routine); Ordered 01/17/21 Ordered By: Jordan Baker Discharge Diet: Advance as tolerated Discharge Activity: Limit activity as instructed Activity Restrictions/Additional Instructions: Return for fever greater than 100, worsening vaginal bleeding, soaking 1 pad per hour for 3 to 4 hours, worsening pain, other vaginal discharge, any other concerning symptoms. Get your blood drawn on Monday, to repeat your quantitative test. Case management will make you an appointment with the women's health clinic for follow-up. If you do not hear from them by Monday, call [phone] and ask for the ER rn case manager hospice. Coding Level of Care Code ED Dredge Deckhand for Pascale Lopes
[2021-01-17 06:50] VITALS: BP 108/70; PULSE 86; RESP 18; O2SAT 100
--- NOTE | 2021-01-18 10:32 | DCPLANNER ---
logistics planning manager had message to schedule a follow up appointment for patient with [facility]. logistics planning manager called the [facility] care clinic, spoke with Charlene, gave clinic patients information. logistics planning manager was told that patients information would be printed and reviewed. Clinic will call patient with appointment information.
--- NOTE | 2021-01-19 14:33 | DCPLANNER ---
Patient has a follow up appointment scheduled for Friday, January 22, 2021 at 11:00 with Charlene Barreto. Clinic will call patient with appointment information.
--- NOTE | 2021-01-28 08:42 | DCPLANNER ---
Patient did attend appointment scheduled with women's health.
== END 2021-01-17 06:50 | disposition home or self-care (01) ==
PROVIDERS: Emergency Provider Emergency Medicine
DX: O20.0 Threatened abortion (principal); Z3A.01 Less than 8 weeks gestation of pregnancy; Z87.891 Personal history of nicotine dependence
CPT/HCPCS: 80053; 81001; 84702; 85025; 86900; 96360; 99283; J7030

== ENCOUNTER 2021-01-19 14:37 | Outpatient (CLI) | payer MEDICAID, SELFPAY | END 2021-01-19 14:38 | disposition home or self-care (01) | PROVIDERS: Visit Provider Emergency Medicine | DX: O20.0 Threatened abortion (principal) | CPT/HCPCS: 36415; 84702 ==

== ENCOUNTER 2021-05-12 12:00 | Observation (INO) | payer MEDICAID, SELFPAY ==
[2021-05-12] VITALS (15 sets, daily range): BP systolic 91–116; BP diastolic 55–78; PULSE 72–89; RESP 15–18; TEMP 36.2–36.4; BMI 31.1
--- NOTE | 2021-05-12 10:38 | US_ITS ---
WS: [id number] Ultrasound abdomen, limited. History: RIGHT lower quadrant pain. Patient is . Comparison: None. Ultrasound is directed to the RIGHT lower quadrant in the area of pain. Normal peristalsing loops of bowel. No inflammatory or hypervascular mass or free fluid. US/US appendix [id number] IMPRESSION: No ultrasound evidence for appendicitis.
[2021-05-12 11:15] LABS: Basophils % 0.5 %; Eosinophils # 0.3 10^3/uL (0.0-0.8); Eosinophils % 4.2 %; Hematocrit 36.4 % (37.0-47.0); Hemoglobin 12.6 g/dL (11.5-15.3); Lymphocytes # 1.7 10^3/uL (0.8-4.8); Lymphocytes % 23.1 %; Mean Corpuscular HGB Conc 34.6 g/dL (30.0-36.0); Mean Corpuscular Hemoglobin 31.2 pg (28.0-34.0); Mean Corpuscular Volume 90.1 fl (81-99); Mean Platelet Volume 11.4 fL (7.4-10.4); Monocytes # 0.3 10^3/uL (0.2-0.9); Monocytes % 3.9 %; Neutrophils # 5.04 10^3/uL (1.8-7.7); Neutrophils % 67.8 %; Nucleated Red Blood Cells % 0 %; Platelet Count 166 10^3/cmm (130-400); Red Blood Count 4.04 10^6/uL (4.1-5.3); White Blood Count 7.4 10^3/uL (4.0-10.0)
[2021-05-12 11:32] LABS: Bilirubin Urine Neg (Negative); Blood Urine Neg (Negative); Glucose Urine UA Norm (Normal); Ketones Urine 1+ (Negative); Leukocyte Esterase Urine Negative (Negative); Nitrate Urine Negative (Negative); Protein Urine Neg (Negative); Urine Appearance Clear (CLEAR); Urine Color Straw (Yellow); Urobilinogen Urine Norm (Negative); pH Urine 6.5 (5-7)
[2021-05-12 11:41] LABS: Alanine Aminotransferase 7 U/L (0-33); Albumin Level 3.9 g/dL (3.5-5.2); Alkaline Phosphatase 59 IU/L (35-105); Blood Urea Nitrogen 5 mg/dL (6-20); Calcium 8.9 mg/dL (8.5-10.5); Carbon Dioxide 20 mmol/L (22-29); Chloride 103 mmol/L (98-107); Globulin 2.4 g/dL (1.3-4.6); Glomerular Filtration Rate 264.9 mL/min (90-130); Glucose 81 mg/dL (65-115); Osmolality Calculated 276 mOsm/kg (285-295); Sodium 135 mmol/L (136-145); Total Bilirubin 0.3 mg/dL (0.15-1.2); Total Protein 6.3 g/dL (6.6-8.7)
[2021-05-12 11:44] LABS: Slide Review Slide Review Perform
[2021-05-12 11:46] LABS: Anion Gap 16.1 (5-19); Aspartate Amino Transferase 16 U/L (0-32); Potassium 4.1 mmol/L (3.5-5.1)
[2021-05-12 11:56] LABS: WBC Urine 0-4 /hpf (0-5)
[2021-05-12 11:57] LABS: Add Urine Culture? No; Bacteria Urine 1+ /hpf; Mucus Urine 1+ /hpf
--- NOTE | 2021-05-12 12:05 | XR_ITS ---
WS: [id number] K[facility], AP portable, 05/12/2021 Clinical Data: R/O APPY LOWER RIGHT QUAD PAIN Comparison: [facility], 08/28/2016. Findings: There is the faint outline of the head in the maternal pelvis. There is fecal material througho ut the colon. No abnormal intra-abdominal masses are seen. No abnormal calcifications are present. XR/XR K[facility] portable [id number] Impression: Intrauterine .
[2021-05-12] MEDS: sodium chlor 0.45% +KCl 20 mEq 20 MEQ/1,000 ML BAG 100 MEQ IV ×2 (13:03→23:25)
[2021-05-12] MEDS: bisacodyl 5 mg Tablet 20 MG PO ×2 (13:04→21:10)
[2021-05-12] MEDS: HYDROcodone-acetaminophen 5-325 mg Tablet 1 TAB PO (13:10)
[2021-05-12] MEDS: ondansetron 2 mg/ML SDV 2 mL 4 MG IVP (21:09)
[2021-05-13 03:51] VITALS: BP 95/52; PULSE 82
--- NOTE | 2021-05-13 06:58 | PM.SDS ---
Short Stay Summary Providers Date of Admit/Discharge: 05/24/21 Attending Provider: Montana Rodriguez MD Chief Complaint: Right Lower pain HPI History of Present Illness Poly Angulo is a 26 year old female who presented to the hospital with right lower quadrant pain. She had not had a fever. She did have a loss of appetite. She continued to pass gas. She had had a bowel movement that day. She did not have diarrhea. Review of Systems General: Reports: 10 or more systems reviewed and unremarkable except in HPI and below Const: Reports: fatigue; Denies: fever(s) Eyes: Denies: change in vision Card: Denies: chest pain Musc: Reports: back pain Bonifacio/Lymph: Denies: easy bruising Home Meds/Allergies Home Medications and Allergies Home Medications Medication Instructions Recorded Confirmed Type dimenhydrinate [Dramamine] 50 mg PO PRN PRN 09/19/20 01/22/21 History Allergies Allergy/AdvReac Type Severity Reaction Status Date / Time No Known Allergies Allergy Verified 01/22/21 10:38 PFSH Acute PFSH: Medical History Alcohol dependence, uncomplicated history of drinking 3/week; not since early December Anxiety Major depressive disorder, recurrent severe without psychotic features was started on prozac but due to coverage she stopped. She used to see [facility], but has not been there since 2019. No pertinent past medical history Neg hx: HTN, DM, thyroid, DVT/PE PCP: None Post-traumatic stress disorder, chronic Surgical History complicated by damage to pelvic organs [facility] tissues [facility] [place] [facility] [place], [place] she doesn't remember where. States uterus was perforated and cervix was cut. States she bled out and had to be resuscitated. Family History Grandmother Dementia Diabetes Family/Other Diabetes Unknown Cancer Skin cancer, breast cancer, lung cancer Other Hyperlipidemia Hypertension Denies family history of CAD (coronary artery disease) Clotting disorder Psychiatric illness Chronic kidney disease (CKD) Suicide Anesthesia complication Bleeding disorder Family history of premature coronary artery disease Lung disease Stroke Social History Smoking and tobacco status: former smoker Quit status (tobacco): has quit using tobacco Year quit tobacco: 2012 Former quit date comment: smoked approx 2-3 cigarrettes per day Second hand smoke exposure: No Alcohol intake: never Lives independently: Yes Household members: children Current occupational status: unemployed History of recent travel: No Current gender identity: Female Special deepti needs: No Agree to transfusion: Yes Female Reproductive History: Date of last menstrual period: 12/13/20 : 6 Vitals/I&O/Wt Last Vital Signs Temp 97.3 F L 05/12/21 21:14 Pulse 82 05/13/21 03:51 Resp 15 05/12/21 21:14 BP 95/52 05/13/21 03:51 05/12/21 05/12/21 05/13/21 14:59 22:59 06:59 Intake Total 1000 / 1000 Balance 1000 / 1000 Weight last 48 hrs Weight 165 lb Physical Exam Const: COMMON NORMALS: patient oriented x3 and alert HENMT: COMMON NORMALS: moist oral mucous membranes HEAD & SCALP: normal to inspection Chest: COMMONS NORMALS: normal inspection of the chest Resp: COMMON NORMALS: clear to auscultation bilaterally AUSCULTATION: clear to auscultation bilaterally Cardio: COMMON NORMALS: regular rate and regular rhythm RATE: regular rate RHYTHM: regular rhythm GI: COMMON NORMALS: Soft to palpation INSPECTION: Yes normal to inspection and Yes other (Gravid) AUSCULTATION: Yes normoactive bowel sounds PALPATION: Yes Soft to palpation and Yes Tenderness to palpation present (GI) Details: RLQ (Rebound noted on admission. Tenderness is now almost gone and no rebound is noted.) Extremity: COMMON NORMALS: normal to inspection GENERAL: Yes edema (Trace) Neuro: COMMON NORMALS: patient oriented x3, moves all extremities and no sensory deficits noted SENSORIUM/ORIENTATION: Yes alert Psych: COMMON NORMALS: mental status grossly normal Skin: COMMON NORMALS: no rashes or lesions noted GENERAL SKIN EXAM: no rashes or lesions noted Hospital Course Hospital Course When the patient initially arrived to the hospital, she had right lower quadrant pain with some rebound. She felt nauseous, and had a reduced appetite. She had not had a bowel movement in several days. She was given Dulcolax x2. She has had a couple bowel movements. Her pain is improved. Her appetite is improved. If she eats breakfast this morning and does well, we will send her home. SSS Data Data Completed and Pending: Completed Studies During Hospitalization Category Date Time Status XR KUB portable 7 [id number] Stat Exams 05/12/21 12:05 [place]pleted [place] appendix [id number] Stat Ultrasound 05/12/21 10:38 Completed Pending at discharge Category Date Time Status Urine Culture Rou nikita Lab 05/12/21 10:50 Received Addt'l Data from Hospital Stay: Her white blood count was 7.4 with a hemoglobin of 12.6 and a platelet count of 166. There was no left shift. The ultrasound of her right lower quadrant was unremarkable. A KUB demonstrated stool in her colon but otherwise was within normal limits. Diagnoses at Discharge Discharge Diagnosis (1) Second trimester : Status: Resolved (2) Right lower quadrant pain: Status: Resolved Discharge Plan Discharge Patient Disposition: Home Prescriptions: New Classic 28 mg iron- 800 mcg tablet 1 tab PO DAILY Qty: 30 RF: 6 No Action Dramamine 50 mg Tablet 50 mg PO PRN PRN (Reason: MOTION SICKNESS/NAUSEA) RF: 0 Discharge Orders: Discharge Order (Routine); Ordered 05/13/21 Ordered By: Montana Rodriguez Referrals: Montana Rodriguez MD [Physician] - 05/18/21 8:45 am Discharge Diet: Usual diet Discharge Activity: Resume usual activity Patient Instructions: OB Undelivered Discharge Attestations Medical Necessity Statement*: The patient required an overnight hospital stay due to the question of appendicitis. Time Spent in Patient Care*: greater than 30 min Specific Discharge Activities: Specific discharge activities: educating patient Quality Metrics Clinical Quality Measures: During this hospital stay, did patient experience: None Coding Level of Care Code Acute Fitting Room Maintenance Mechanic for Chg Fwd Exam Comprehensive Diagnoses Second trimester Z34.92 Right lower quadrant pain R10.31
[2021-05-13 10:16] VITALS: RESP 16; TEMP 36.3
[2021-05-13 10:26] VITALS: BP 97/52; PULSE 84
[2021-05-13 12:35] VITALS: BP 101/58; PULSE 88
[2021-05-13 12:45] VITALS: BP 101/58; PULSE 88
== END 2021-05-13 12:45 | disposition home or self-care (01) ==
LOC: OBGYN 05-13 08:38 → OPOB 05-13 11:59 → OBGYN 05-13 12:00
PROVIDERS: Admitting Provider Family Medicine; Visit Provider Family Medicine
DX: Z34.92 Encounter for supervision of normal pregnancy, unspecified, second trimester (principal); R10.31 Right lower quadrant pain; Z87.891 Personal history of nicotine dependence
CPT/HCPCS: 12345; 36415; 74018; 76705; 80053; 81001; 85025; 87086; 99211; G0378; J2405

== ENCOUNTER 2021-07-30 20:40 | Outpatient (CLI) | payer MEDICAID, SELFPAY ==
[2021-07-30 20:58] VITALS: BP 106/64; PULSE 88
[2021-07-30 21:10] VITALS: RESP 16
[2021-07-30 21:11] VITALS: BMI 34.0
[2021-07-30] MEDS: sodium chloride 0.9% 1,000 ML 999 ML IV (21:50)
[2021-07-30] MEDS: terbutaline 1 mg/mL INJ 0.25 MG SUBCUT (21:50)
[2021-07-30 22:26] LABS: Urine Appearance SL Hazy (CLEAR); Urine Color Yellow (Yellow); pH Urine 8 (5-7)
[2021-07-30 22:27] LABS: Add Urine Microscopic? YES; Bilirubin Urine Neg (Negative); Blood Urine Neg (Negative); Glucose Urine UA 1+ (Normal); Ketones Urine 1+ (Negative); Leukocyte Esterase Urine Trace (Negative); Nitrate Urine Negative (Negative); Protein Urine Neg (Negative); RBC Urine 0-4 /hpf (0-2); Sulfosalicylic Acid Urine Positive (Negative); Urobilinogen Urine Norm (Negative); WBC Urine 0-4 /hpf (0-5)
[2021-07-30 22:28] LABS: Add Urine Culture? No; Amorphous Sediment Urine 1+ /hpf; Bacteria Urine 1+ /hpf; Mucus Urine TRACE /hpf; Sperm Urine 1+ /hpf
[2021-07-30] MEDS: acetaminophen 500 mg Tablet 1000 MG PO (23:07)
== END 2021-07-30 23:40 | disposition home or self-care (01) ==
LOC: OPOB 20:49 → OBGYN 20:50
PROVIDERS: Visit Provider Family Medicine
DX: O26.899 Other specified pregnancy related conditions, unspecified trimester (principal); Z3A.00 Weeks of gestation of pregnancy not specified; R10.9 Unspecified abdominal pain
CPT/HCPCS: 59025; 81001; 99211; J3105; J7030

== ENCOUNTER 2021-08-04 05:26 | Outpatient (CLI) | payer MEDICAID, SELFPAY ==
[2021-08-04] VITALS (45 sets, daily range): BP systolic 90–131; BP diastolic 51–83; PULSE 103–131; RESP 17–18; TEMP 36.6–36.9; O2SAT 96–100; BMI 33.2
[2021-08-04 06:08] LABS: Actim Prom Negative
[2021-08-04] MEDS: lactated ringers 1,000 ML 999 ML IV (06:34)
[2021-08-04] MEDS: terbutaline 1 mg/mL INJ 0.25 MG SUBCUT (06:35)
[2021-08-04] MEDS: betamethasone susp 6 mg/mL 5 mL 12 MG IM (06:35)
[2021-08-04] MEDS: HYDROcodone-acetaminophen 5-325 mg Tablet 1 TAB PO (08:15)
== END 2021-08-04 13:15 | disposition home or self-care (01) ==
LOC: OPOB 05:31 → OBGYN 05:32
PROVIDERS: Visit Provider Family Medicine
DX: O26.899 Other specified pregnancy related conditions, unspecified trimester (principal); Z3A.00 Weeks of gestation of pregnancy not specified; R10.9 Unspecified abdominal pain
CPT/HCPCS: 59025; 84112; 96372; 99211; J0702; J3105

== ENCOUNTER 2021-08-17 07:00 | Inpatient (IN) | payer MEDICAID, SELFPAY ==
[2021-08-17] VITALS (92 sets, daily range): BP systolic 88–130; BP diastolic 51–91; PULSE 71–120; RESP 16–18; TEMP 35.8–36.8; O2SAT 92–100; BMI 34.2
[2021-08-17 01:34] LABS: Basophils % 0.4 %; Eosinophils # 0.1 10^3/uL (0.0-0.8); Eosinophils % 1.6 %; Hematocrit 32.6 % (37.0-47.0); Hemoglobin 9.8 g/dL (11.5-15.3); Lymphocytes # 2.3 10^3/uL (0.8-4.8); Lymphocytes % 27.9 %; Mean Corpuscular HGB Conc 30.1 g/dL (30.0-36.0); Mean Corpuscular Hemoglobin 27.8 pg (28.0-34.0); Mean Corpuscular Volume 92.4 fl (81-99); Mean Platelet Volume 11.2 fL (7.4-10.4); Monocytes # 0.4 10^3/uL (0.2-0.9); Monocytes % 4.6 %; Neutrophils # 5.36 10^3/uL (1.8-7.7); Neutrophils % 65.1 %; Nucleated Red Blood Cells % 0 %; Platelet Count 186 10^3/cmm (130-400); Red Blood Count 3.53 10^6/uL (4.1-5.3); Red Cell Distribution Width 21.2 % (12.1-15.1); White Blood Count 8.2 10^3/uL (4.0-10.0)
[2021-08-17] MEDS: dextrose 5%-lactated ringers 1,000 ML 125 ML IV ×2 (01:51→09:08)
[2021-08-17] MEDS: ampicillin 2,000 MG in sodium chloride 0.9% (plus) 50 ML 100 MG IV (01:51)
[2021-08-17] MEDS: lactated ringers 1,000 ML 999 ML IV (03:30)
--- NOTE | 2021-08-17 04:48 | ANES.PREANE2 ---
Pre-Anesthetic Assessment Height/Weight: Height 1.55 m Weight 82.1 kg Temp Pulse Resp BP Pulse Ox 97.0 F L 93 17 122/56 100 08/17/21 00:39 08/17/21 04:47 08/17/21 00:57 08/17/21 04:47 08/17/21 04:43 Labor Epidural Familial anesthetic complications: None Social No alcohol and No tobacco Exam alert, oriented x 3 and clear to auscultation bilaterally Airway Submandibular: within normal limits Cervical ROM: within normal limits Mallampati: Class II Dentition: full History/ROS No significant history except as noted Pulmonary None reported CV/HEM None reported None reported Hepatic None reported GI None reported Metabolic None reported Musc/skel None reported Neuropsych Anxiety and Depression Anesthetic Plan ASA status: 2 Anesthesia: Regional (specify below) Other: Labor Epidural Medications/Allergies Home Medications Medication Instructions Recorded Confirmed Last Taken Type 1 tab PO DAILY 08/04/21 08/17/21 08/16/21 History Allergies Allergy/AdvReac Type Severity Reaction Status Date / Time No Known Allergies Allergy Verified 08/17/21 01:17 Current Medications Generic Name Dose Route Start Last Admin Trade Name Freq PRN Reason Stop Dose Admin Dextrose/Lactated Ringer's 1,000 mls @ 125 mls/hr 08/17/21 00:57 08/17/21 01:51 Dextrose 5%-Lactated Ringers IV 125 mls/hr .Q8H PRN Administration labor Ropivacaine 200 mg in 100 mls @ 13 mls/hr 08/17/21 03:15 08/17/21 04:47 Naropin Premix EPIDURAL 12 mls/hr .Q7H42M ZOE Administration Lactated Ringer's 1,000 mls @ 999 mls/hr 08/17/21 03:12 08/17/21 03:30 Lactated Ringers IV 999 mls/hr .Q1H1M PRN Administration See label comments [facility] Anesthesia Medical History Alcohol dependence, uncomplicated history of drinking 3/week; not since early December Anxiety Major depressive disorder, recurrent severe without psychotic features was started on prozac but due to coverage she stopped. She used to see [facility], but has not been there since 2019. No pertinent past medical history Neg hx: HTN, DM, thyroid, DVT/PE PCP: None Post-traumatic stress disorder, chronic Surgical History complicated by damage to pelvic organs or tissues [facility] [place] [facility] [place], [place] she doesn't remember where. States uterus was perforated and cervix was cut. States she bled out and had to be resuscitated. Family History Grandmother Dementia Diabetes Family/Other Diabetes Unknown Cancer Skin cancer, breast cancer, lung cancer Other Hyperlipidemia Hypertension Denies family history of CAD (coronary artery disease) Clotting disorder Psychiatric illness Chronic kidney disease (CKD) Suicide Anesthesia complication Bleeding disorder Family history of premature coronary artery disease Lung disease Stroke Social History Smoking and tobacco status: former smoker Quit status (tobacco): has quit using tobacco Year quit tobacco: 2012 Former quit date comment: smoked approx 2-3 cigarrettes per day Second hand smoke exposure: No Alcohol intake: never Lives independently: Yes Household members: children Current occupational status: unemployed History of recent travel: No Current gender identity: Female Special deepti needs: No Agree to transfusion: Yes Female Reproductive History Date of last menstrual period: 12/13/20 : 5 Data Anesthesia : 08/17/21 01:20 Short CBC 08/17/21 Range/Units 01:20 WBC 8.2 (4.0-10.0) 10^3/uL Hgb 9.8 L (11.5-15.3) g/dL Hct 32.6 L (37.0-47.0) % MCV 92.4 (81-99) fl Plt Count 186 (130-400) 10^3/cmm Neut % (Auto) 65.1 % Neut # (Auto) 5.36 (1.8-7.7) 10^3/uL Cardiac Studies: No Data to Display Anesthesia Procedures Epidural Time Out Performed: Yes Consent: from patient, risks and benefits reviewed and patient agrees to proceed Lumbar Level: L3-L4 Epidural position: sitting Epidural procedure: sterile prep of area, 1% lidocaine to numb the area, negative for paresthesia passed, test dose given, 1.5% xylocaine 1:200k epi, placed PCEA, no systemic response, sterile dressing applied, L.U.D. no apparent complications and 0.2% Ropiavacaine @ mls/hr (12) Additional Comments: ALANA at 5 cm catheter threaded to 13 cm
[2021-08-17] MEDS: ampicillin 1,000 MG in sodium chloride 0.9% (plus) 50 ML 100 MG IV ×3 (05:00→13:19)
[2021-08-17] MEDS: oxytocin 30 UNIT/500 ML BAG IV (06:06)
[2021-08-17 10:11] LABS: Adenovirus Not Detected (NOT DETECT); Chlamydia Pneumoniae Not Detected (NOT DETECT); Coronavirus 229E,HKU1,NL63,OC4 Not Detected (NOT DETECT); Human Metapneumovirus Not Detected (NOT DETECT); Human Rhinovirus/Enterovirus Not Detected (NOT DETECT); Influenza A Not Detected (NOT DETECT); Influenza A H1 Not Detected (NOT DETECT); Influenza A H1-2009 Not Detected (NOT DETECT); Influenza A H3 Not Detected (NOT DETECT); Influenza B Not Detected (NOT DETECT); Mycoplasma Pneumoniae Not Detected (NOT DETECT); Parainfluenza Virus Type 1 Not Detected (NOT DETECT); Parainfluenza Virus Type 2 Not Detected (NOT DETECT); Parainfluenza Virus Type 3 Not Detected (NOT DETECT); Parainfluenza Virus Type 4 Not Detected (NOT DETECT); Respiratory Syncytial Virus A Not Detected (NOT DETECT); Respiratory Syncytial Virus B Not Detected (NOT DETECT); SARS-COV-2 Not Detected (NOT DETECT)
[2021-08-17] MEDS: ondansetron 2 mg/ML SDV 2 mL 4 MG IVP (13:19)
--- NOTE | 2021-08-17 14:22 | PM.OPHPUD ---
Labor & Delivery H&P Update Date of Procedure: August 17, 2021 Date H&P Performed: 08/20/21 Admission Diagnosis: 26-year-old 5 para 2-0-2-2 with an estimated gestational age of 36 weeks and 2 days presenting with spontaneous rupture of membranes Planned procedure: Spontaneous vaginal delivery Other information: The patient had an unremarkable . Her blood type was O+. She was rubella immune. Her GBS status was unknown. The remainder of her labs were within normal limits.
--- NOTE | 2021-08-17 14:25 | PM.DELIVERY ---
Delivery Note: Date of delivery: August 17, 2021 Pre-delivery diagnoses: 26-year-old 5 para 2-0-3-2 at 36 weeks and 2 days presenting with spontaneous rupture of membranes Post-delivery diagnoses: Status post spontaneous vaginal delivery Procedure: Spontaneous vaginal delivery Delivering Physician: Montana Rodriguez Findings: 150 Post Delivery Diagnoses: 36 weeks gestation of : The patient did very well. There were no concerns. I anticipate routine care. Pre-Delivery Course: The patient presented to the hospital with spontaneous rupture of membranes. The membranes were ruptured about 16 hours prior to delivery. The patient did not have fever. There were no other indications Of infection. She was placed on ampicillin for group B strep protocol due to the patient's gestational age. She was also placed on Pitocin because she was not making cervical change. She gradually progressed to complete without difficulty. Delivery: DELIVERY: The patient progressed to complete without difficulty. She delivered a female with a weight of 6 pounds 13 ounces with Apgars of eight, nine. The baby was delivered from the FER position and placed on the mother's abdomen. The cord was then clamped and cut 1 minute after delivery There was a nuchal cord x1 There was no meconium. The placenta and 3 vessel cord were delivered intact shortly thereafter. The perineum and vaginal vault were carefully examined. No lacerations were noted. Both the mother and the baby were in stable condition. Post-Delivery Status: Good History History History 5 Term 2 Miscarriages/Ectopic 3 0 Living Children 2 A&P Assessment and plan (1) 36 weeks gestation of : I anticipate routine care. Status: Resolved (2) Spontaneous vaginal delivery: Status: Resolved (3) Spontaneous rupture of membranes: Status: Resolved Coding Level of Care Code Acute Ferryboat Captain for Chg Fwd Diagnoses 36 weeks gestation of Z3A.36 Spontaneous vaginal delivery O80 Spontaneous rupture of membranes
[2021-08-17] MEDS: lanolin oint 7 gm 1 APPLIC TOPICAL (15:44)
[2021-08-17] MEDS: benzocaine-menthol 78 gm Canister 1 SPRAY TOPICAL (15:45)
[2021-08-17] MEDS: ibuprofen 800 mg tablet PO ×2 (15:45→20:49)
[2021-08-17] MEDS: HYDROcodone-acetaminophen 5-325 mg Tablet PO (15:45)
--- NOTE | 2021-08-17 16:41 | ANE.PACU2 ---
Inpatient post-anesthesia follow up: Airway intact: Yes Vital signs: Temperature 97.9 F Pulse Rate 79 Respiratory Rate 18 Blood Pressure 120/74 Pulse Oximetry 99 Oxygen Delivery Me thod Room Air Oxygen Flow Rate Fraction of Inspir ed Oxygen Hydration adequate: Yes Nausea and vomiting: No Pain level: 2 Mental status: Baseline
--- NOTE | 2021-08-17 16:49 | PC.NURSE ---
pt up to bathroom with assistance. void 600mL. angelica care performed by pt. gown and pad changed.
--- NOTE | 2021-08-17 16:50 | PC.NURSE ---
pt ambulated to OB 9. oriented to room and call light. proud parent pack discussed.
[2021-08-17] MEDS: docusate sodium 100 mg Capsule PO (18:10)
[2021-08-18 00:01] VITALS: BP 106/75; PULSE 70; RESP 16; TEMP 36.9
[2021-08-18] MEDS: HYDROcodone-acetaminophen 5-325 mg Tablet PO (00:22)
[2021-08-18 02:56] LABS: Hematocrit 30.4 % (37.0-47.0); Hemoglobin 9.8 g/dL (11.5-15.3); Mean Corpuscular HGB Conc 32.2 g/dL (30.0-36.0); Mean Corpuscular Hemoglobin 28.4 pg (28.0-34.0); Mean Corpuscular Volume 88.1 fl (81-99); Mean Platelet Volume 11.9 fL (7.4-10.4); Platelet Count 141 10^3/cmm (130-400); Red Blood Count 3.45 10^6/uL (4.1-5.3); Red Cell Distribution Width 14.5 % (12.1-15.1); White Blood Count 10.5 10^3/uL (4.0-10.0)
[2021-08-18 04:29] VITALS: BP 120/77; PULSE 88; RESP 16
--- NOTE | 2021-08-18 08:29 | PM.OBGYDC ---
Discharge Providers FOOD TECHNICIAN Date of Admission: 08/17/21 07:00 Date of Discharge: 08/24/21 Attending Provider at Admission: Montana Rodriguez MD Attending Provider at Discharge: Montana Rodriguez MD Diagnoses at Discharge Discharge Diagnosis (1) 36 weeks gestation of : Status: Resolved (2) Spontaneous vaginal delivery: Status: Resolved (3) Spontaneous rupture of membranes: Status: Resolved Reason for Visit Reason for Visit: Possible ROM Hospital Course Hospital Course The patient presented to the hospital spontaneous rupture of membranes. Her labor was augmented and she progressed to complete and had an unremarkable delivery of a healthy . She was placed on GBS protocol. Her course was unremarkable. Information Peripartum Data: Infant Delivery Method: Vaginal Physical Exam Narrative: The patient is alert. She appears comfortable. Her heart has a regular rate and rhythm with no murmurs appreciated. Lungs are clear to auscultation bilaterally. Her fundus is firm and below the umbilicus. Urinary Catheter Management: Nava Latex: Cath Placed During This Visit: yes, but has since been removed by the nurse Reason for Continuing Indwelling Catheter: Decision to DC Catheter Urinary Catheter Date of Insertion: 08/17/21 Urinary Catheter Time of Insertion: 04:48 Date Urinary Catheter Removed: 08/17/21 Time Urinary Catheter Discontinued: 14:00 History History History 5 Term 2 Miscarriages/Ectopic 3 0 Living Children 2 Discharge Data Studies Completed and Pending Laboratory Results WBC 10.5 10^3/uL (4.0-10.0) H 08/18/21 02:45 RBC 3.45 10^6/uL (4.1-5.3) L 08/18/21 02:45 Hgb 9.8 g/dL (11.5-15.3) L 08/18/21 02:45 Hct 30.4 % (37.0-47.0) L 08/18/21 02:45 MCV 88.1 fl (81-99) 08/18/21 02:45 MCH 28.4 pg (28.0-34.0) 08/18/21 02:45 MCHC 32.2 g/dL (30.0-36.0) D 08/18/21 02:45 RDW 14.5 % (12.1-15.1) 08/18/21 02:45 Plt Count 141 10^3/cmm (130-400) 08/18/21 02:45 MPV 11.9 fL (7.4-10.4) H 08/18/21 02:45 Neut % (Auto) 65.1 % 08/17/21 01:20 Lymph % (Auto) 27.9 % 08/17/21 01:20 [place] % (Auto) 4.6 % 08/17/21 01:20 Eos % (Auto) 1.6 % 08/17/21 01:20 Baso % (Auto) 0.4 % 08/17/21 01:20 Neut # (Auto) 5.36 10^3/uL (1.8-7.7) 08/17/21 01:20 Lymph # (Auto) 2.3 10^3/uL (0.8-4.8) 08/17/21 01:20 [place] # (Auto) 0.4 10^3/uL (0.2-0.9) 08/17/21 01:20 Eos # (Auto) 0.1 10^3/uL (0.0-0.8) 08/17/21 01:20 Baso # (Auto) 0.0 10^3/uL (0.0-0.1) 08/17/21 01:20 Nucleated RBC % (auto) 0 % 08/17/21 01:20 Nucleated RBCs # 0.0 /100WBC 08/17/21 01:20 Coronavirus 229E (PCR) Not detected (NOT DETECT) 08/17/21 07:45 SARS-CoV-2 (PCR) Not detected (NOT DETECT) 08/17/21 07:45 Vitals Last Vital Signs Temp 98.4 F 08/18/21 00:01 Pulse 88 08/18/21 04:29 Resp 16 08/18/21 04:29 BP 120/77 08/18/21 04:29 Pulse Ox 98 08/17/21 22:16 Discharge Plan Discharge Patient Disposition: Home Condition: Stable Prescriptions: New ibuprofen 800 mg Tablet 800 mg PO TID Qty: 45 0RF Continued 1 tab PO DAILY 0RF Discharge Orders: Discharge Order (Routine); Ordered 08/18/21 Ordered By: Montana Rodriguez Referrals: Nestor Hampton MD [Physician] - 09/13/21 12:45 pm (Your tubal ligation consult with Dr. Hampton is Monday September 13, 2021 at 12:45 p.m.) Motnana Rodriguez MD [Physician] - 09/22/21 11:00 am Discharge Diet: Usual diet Discharge Activity: Limit activity as instructed Patient Instructions: Depression (DC), Bleeding (ED), Preeclampsia and Eclampsia After Delivery (GEN), COVID-19 and (GEN), OB Discharge Report, OB Food/Drug Interaction Guide, OB Care at Home, Opioid Safety, OB Home Care, OB Vaginal Deliveries Discharge Attestations FOOD TECHNICIAN Time Spent in Discharge Care*: less than 30 min Coding Level of Care Code Acute Magician Helper for Chg Fwd Diagnoses 36 weeks gestation of Z3A.36 Spontaneous vaginal delivery O80 Spontaneous rupture of membranes
[2021-08-18] MEDS: ibuprofen 800 mg tablet PO ×2 (09:14→16:02)
[2021-08-18] MEDS: prenatal vitamin Capsule 1 CAP PO (09:15)
[2021-08-18] MEDS: docusate sodium 100 mg Capsule PO (09:15)
[2021-08-18 10:09] VITALS: BP 99/65; PULSE 82; RESP 16; TEMP 36.7; O2SAT 95
[2021-08-18 16:15] VITALS: BP 99/65; PULSE 82; RESP 16; TEMP 36.6; O2SAT 95
== END 2021-08-18 16:20 | disposition home or self-care (01) | DRG 807 ==
LOC: OPOB 14:34 → OBGYN 14:34
PROVIDERS: Admitting Provider Family Medicine; Visit Provider Family Medicine
DX: O69.81X0 Labor and delivery complicated by cord around neck, without compression, not applicable or unspecified (principal); Z37.0 Single live birth; Z3A.36 36 weeks gestation of pregnancy; O42.013 Preterm premature rupture of membranes, onset of labor within 24 hours of rupture, third trimester
CPT/HCPCS: 12345; 36415; 51702; 59025; 59409; 83986; 85025; 85027; 87635; 96374; 99211; J0290; J2405; J2795

== ENCOUNTER → 2021-11-15 09:07 | Outpatient (BNVA) | payer MEDICAID, SELFPAY | PROVIDERS: Visit Provider Obstetrics & Gynecology | DX: Z01.812 Encounter for preprocedural laboratory examination (principal); Z30.09 Encounter for other general counseling and advice on contraception | CPT/HCPCS: 80053; 81000; 81025; 85025; 86850; 86900 ==

== ENCOUNTER 2021-11-17 09:02 | Day surgery (SDC) | payer MEDICAID, SELFPAY ==
[2021-11-15 10:16] VITALS: BMI 32.0
--- NOTE | 2021-11-15 10:22 | P.ANESASSM_ITS ---
Pre-Anesthetic Assessment Height/Weight: Height 1.52 m Weight 74.389 kg Operation Date: 11/17/21 11:20 Proposed Procedures p Laparoscopic Salpingectomy 26755/z30.2(Bilateral) - Nestor Hampton MD Familial anesthetic complications: None Social No alcohol and No tobacco Exam alert, oriented x 3, clear to auscultation bilaterally and regular rate & rhythm Airway Mallampati: Class I Dentition: chipped (front tooth (recent)) Pulmonary None reported CV/HEM None reported None reported Hepatic None reported GI None reported Metabolic None reported Musc/skel None reported Neuropsych None reported Anesthetic Plan ASA status: 1 Anesthesia: General Risk of > 500 ml blood loss (7ml/kg in children): No Medications/Allergies Home Medications Medication Instructions Recorded Confirmed Last Taken Type ibuprofen 800 mg tablet 800 mg PO TID PRN tab 09/17/21 11/15/21 Unknown History Allergies Allergy/AdvReac Type Severity Reaction Status Date / Time No Known Allergies Allergy Verified 11/15/21 10:15 [facility] Anesthesia Medical History Alcohol dependence, uncomplicated history of drinking 3/week; not since early December Anxiety Major depressive disorder, recurrent severe without psychotic features was started on prozac but due to coverage she stopped. She used to see [facility], but has not been there since 2019. No pertinent past medical history Neg hx: HTN, DM, thyroid, DVT/PE PCP: None Post-traumatic stress disorder, chronic Surgical History complicated by damage to pelvic organs or tissues [facility] [place] [facility] [place], [place] she doesn't remember where. States uterus was perforated and cervix was cut. States she bled out and had to be resuscitated. Family History Grandmother Dementia Diabetes Family/Other Diabetes Unknown Cancer Skin cancer, breast cancer, lung cancer Other Hyperlipidemia Hypertension Denies family history of CAD (coronary artery disease) Clotting disorder Psychiatric illness Chronic kidney disease (CKD) Suicide Anesthesia complication Bleeding disorder Family history of premature coronary artery disease Lung disease Stroke Social History Smoking and tobacco status: never smoked Quit status (tobacco): has quit using tobacco Year quit tobacco: 2012 Former quit date comment: smoked approx 2-3 cigarrettes per day Second hand smoke exposure: No Alcohol intake: current Alcohol intake frequency: holidays/special occasions only Alcohol type: wine Lives independently: Yes Household members: children Current occupational status: unemployed History of recent travel: No Current gender identity: Female Special deepti needs: No Agree to transfusion: Yes Female Reproductive History Date of last menstrual period: 12/13/20 Data Anesthesia Cardiac Studies: No Data to Display
[2021-11-17] VITALS (10 sets, daily range): BP systolic 103–122; BP diastolic 69–88; PULSE 61–85; RESP 14–18; TEMP 36.3–37.1; O2SAT 90–100
[2021-11-17] MEDS: scopolamine 1.5 Patch 1 PATCH TRANSDERMA (09:31)
[2021-11-17] MEDS: sodium chloride 0.9% 500 ML IV (09:36)
--- NOTE | 2021-11-17 10:16 | P.ANESUD_ITS ---
Pre-Anesthetic Update Pre-Anesthetic Assessment: Date of Surgery/Procedure: 11/17/21 Preop Christina gnosis: Desire permanent sterilization Proposed Procedure: Operation Date: 11/17/21 11:20 Proposed Procedures p Laparoscopic Salpingectomy 05650/z30.2(Bilateral) - Nestor Hampton MD Any changes to Pre-Anesthetic Assessment?: No Last Intake: Intake Last Liquid Date 11/16/21 Last Liquid Time 22:30 Last Solid Date 11/16/21 Last Solid Time 22:30 Vitals: Temperature 97.5 F L 11/17/21 09:16 Temperature Source Temporal Artery S can 11/17/21 09:16 Pulse Rate 85 11/17/21 09:16 Respiratory Rate 16 11/17/21 09:16 Blood Pressure 122/78 11/17/21 09:16 Blood Pressure Myra n 92 11/17/21 09:16 Pulse Oximetry 98 11/17/21 09:16 Oxygen Delivery Me thod 11/17/21 09:16 Exam: Pre-Anes Outpt Exam: alert, oriented x 3, clear to auscultation bilaterally and regular rate & rhythm Cardiac Studies: No Data to Display
[2021-11-17] MEDS: sodium chloride 0.9% 1,000 ML 30 ML IV (10:53)
[2021-11-17 11:07] LABS: OR HCG Qualitative Urine Negative (Negative)
--- NOTE | 2021-11-17 11:10 | W.PM.OPSUD ---
Surgery/Procedure H&P Update DATE OF PROCEDURE: November 17, 2021 DATE H&P PERFORMED: 11/15/21 H&P UPDATE INFORMATION: I have reviewed H&P completed within last 30 days, I have examined patient prior to procedure and No changes to prior documentation PREOP DIAGNOSIS: Desire permanent sterilization PLANNED PROCEDURE: Operation Date: 11/17/21 11:20 Proposed Procedures p Laparoscopic Salpingectomy 36196/z30.2(Bilateral) - Nestor Hampton MD
--- NOTE | 2021-11-17 12:06 | PM.OP ---
Operative Report Date of procedure: November 17, 2021 Pre-op diagnosis: Preop Diagnosis Desire permanent sterilization Post-op diagnosis: Same as above Procedure done: Laparoscopic bilateral salpingectomy Specimens removed/disposition: Left and right fallopian tube Pathology: Left and right fallopian tube Surgeon: Nestor Hampton MD Estimated blood loss (mL): 5 IV fluids (mL): 800 Urine output (mL): 200 Complications: None Findings: Mild endometriosis Procedure: After informed consent, the patient was taken to the operating room where general anesthesia was administered. She was placed in the dorsal lithotomy position and prepped and draped in sterile fashion. Pre-Procedure Time-Out verifying the correct patient identity, correct procedure verified with consent, correct site and side, correct patient position, availability of correct implants and any special equipment or requirements was performed and acknowledge by the OR team. The patient was examined under anesthesia and found to have a normal uterus with normal adnexa. A weighted speculum was placed in the vagina, and the anterior lip of cervix was grasped with the single toothed tenaculum. A uterine manipulator was advanced into the endocervical canal and uterus. The tenaculum was removed after uterine manipulator was secured. The speculum was removed from the vagina. An intraumbilical incision was made with a scalpel. While tenting up on the abdomen, a Verres needle was admitted into the intra-abdominal cavity. A saline drop test was performed and noted to be within normal limits. Pneumoperitoneum was attained with 4 liters of carbon dioxide. The Verres needle was removed. A 5 mm Opitc view trocar and sleeve were admitted into the abdomen and laparoscopic confirmation of location was achieved. A second incision was made 3 cm above the symphysis pubis, and a 5 mm trocar sleeves were admitted into the abdomen under direct laparoscopic visualization without complication. A survey revealed normal abdominal anatomy with the exception of string adhesion to the right lower anterior abdominal wall. A 5 mm blunt probe was advanced through the second trocar sleeve, and light manipulation of ovaries and uterus to assess the posterior aspects was performed. The pelvic survey shows normal uterus, left and right adnexa. The left ovary was noted with a follicular cyst. The string adhesion was fulgurated and transected with good hemostasis with the Enseal. The patient was placed into Trendelenburg position. The fallopian tubes were inspected bilaterally and the fimbriated ends of the fallopian tubes were visualized bilaterally. Attention was then directed to the right side. The fallopian tube and mesosalpinx were grasped and the underlying mesosalpinx was cauterized and cut using the Enseal device. Serial cauterization and cutting was used to separate the fallopian tube from the underlying mesosalpinx until it could be amputated cutting it approximated 2 cm from the cornua. Attention was then turned to the contralateral fallopian tube, which was removed in similar fashion. Both specimens were removed through the trocar and sent to pathology. The instruments were removed. The suprapubic trocar port was removed under direct visualization insuring good hemostasis. The carbon dioxide was allowed to escape from the abdomen. The intraumbilical trocar sleeve was withdrawn under visualization with laparoscope in the sleeve to insure hemostasis. The skin incisions were closed with 3-O Monocryl subcuticular stich and Dermabond. The instruments were removed from the vagina, and excellent hemostasis was noted. The patient tolerated the procedure well, and sponge, lap and needle count were correct times two. The patient was taken to the recovery room in good condition.
[2021-11-17] MEDS: HYDROcodone-acetaminophen 5-325 mg Tablet 1 TAB PO (13:00)
--- NOTE | 2021-11-17 13:45 | ANE.PACU2 ---
Inpatient post-anesthesia follow up: Airway intact: Yes Vital signs: Temperature 98.8 F Pulse Rate 66 Respiratory Rate 16 Blood Pressure 112/75 Pulse Oximetry 96 Oxygen Delivery Me thod Room Air Oxygen Flow Rate 4 Fraction of Inspir ed Oxygen Hydration adequate: Yes Nausea and vomiting: No Pain level: 2 Mental status: Baseline
== END 2021-11-17 13:27 | disposition home or self-care (01) ==
PROVIDERS: Anesthesiology; Visit Provider Obstetrics & Gynecology
PROC: (CPT 58661; principal; 2021-11-17 11:20)
DX: Z30.2 Encounter for sterilization (principal)
CPT/HCPCS: 58661; 81025; 84703; 88302; J0330; J0690; J1100; J1170; J1200; J1885; J2250; J2405; J2710; J3010; J3490; J7030; J7040

== ENCOUNTER 2023-05-04 13:40 | Emergency (ER) | payer MEDICAID, SELFPAY ==
--- NOTE | 2023-05-04 13:47 | ECG_ITS ---
[facility] Test Date: 2023-05-04 Pat Name: Poly Angulo Department: Room: Gender: Female Blank Driller: : 1995 Requested By: Say Acosta Order Number: [id number] Mamta MD: Jake Monroe M.D. Measurements Intervals [place] Rate: 78 P: 35 DC: 178 QRS: 19 QRSD: 72 T: 13 QT: 356 QTc: 406 Interpretive Statements SINUS RHYTHM SEPTAL MYOCARDIAL INFARCTION , OF INDETERMINATE AGE [40+ ms Q WAVE IN V1/V2] Compared to ECG 09/15/2018 23:48:09 Myocardial infarct finding now present Electronically Signed On 05-04-2023 14:58:06 CDT by Jake Monroe M.D. [email or web address]
[2023-05-04 13:51] VITALS: BP 107/73; PULSE 88; RESP 16; TEMP 36.8; O2SAT 97; BMI 31.8
--- NOTE | 2023-05-04 14:17 | ED_ITS ---
HPI - Chest Pain General: Chief Complaint: Chest Pain Stated Complaint: chest pain, stomach pains Time Seen by Provider: 05/04/23 14:17 History of Present Illness: 28-year-old female presents emergency department with complaints of left chest wall pain that started yesterday evening while she was cleaning her living room. She states she was picking up her child's toys when she suddenly had a sharp pain. She states it improved significantly and then returned today. She states nothing seems to make it better nothing seems to make it worse. She states at that time the pain was a 3 out of 10. She denies nausea, vomiting, diaphoresis or syncope or near syncope. She states the pain does not radiate. Review of Systems General: Reports: 10 or more systems reviewed and unremarkable except in HPI and below Card: Reports: chest pain [facility] ED PFSH: Medical History Alcohol dependence, uncomplicated history of drinking 3/week; not since early December Anxiety Major depressive disorder, recurrent severe without psychotic features was started on prozac but due to coverage she stopped. She used to see [facility], but has not been there since 2019. No pertinent past medical history Neg hx: HTN, DM, thyroid, DVT/PE PCP: None Post-traumatic stress disorder, chronic Request for sterilization Surgical History complicated by damage to pelvic organs or tissues 2018: [facility] [place] [facility] [place], [place] she doesn't remember where. States uterus was perforated and cervix was cut. States she bled out and had to be resuscitated. H/O bilateral salpingectomy 11/17/2021- laparoscopic bilateral salpingectomy performed by Dr. Hampton at [facility] Family History Grandmother Dementia Diabetes Family/Other Diabetes Unknown Cancer Skin cancer, breast cancer, lung cancer Other Hyperlipidemia Hypertension Denies family history of CAD (coronary artery disease) Clotting disorder Psychiatric illness Chronic kidney disease (CKD) Suicide Anesthesia complication Bleeding disorder Family history of premature coronary artery disease Lung disease Stroke Social History (Updated 05/04/23 @ 11:19 by Lisha Chaudhry LPN, RT) Smoking and tobacco/nicotine status: former use of tobacco/nicotine Quit status (tobacco/nicotine): has quit using Year quit tobacco: 2012 Former q uit date comment: smoked approx 2-3 cigarrettes per day Second hand smoke exposure: No Alcohol intake: current Alcohol intake frequency: holidays/special occasions only Alcohol type: wine Substance/Drug Use: current Substance/Drug use frequency: few times a month Lives independently: Yes Household members: children Current occupational status: unemployed Current gender identity: Female Special deepti needs: No Agree to transfusion: Yes Physical Exam Const: COMMON NORMALS: no acute distress, patient oriented x3 and alert HENMT: COMMON NORMALS: normocephalic and moist oral mucous membranes HEAD & SCALP: normocephalic Eye: COMMON NORMALS: Equal, round and reactive pupils present and EOMs intact bilaterally PUPIL: Yes Equal, round and reactive pupils present Neck/C-Spine: COMMON NORMALS: full ROM, supple and no meningeal signs Resp: COMMON NORMALS: normal respiratory effort and clear to auscultation bilaterally AUSCULTATION: clear to auscultation bilaterally Cardio: COMMON NORMALS: regular rate, regular rhythm, S1 normal heart sound present, S2 normal heart sound present and Peripheral pulses 2+ throughout RATE: regular rate RHYTHM: regular rhythm HEART SOUNDS: S1 normal heart sound present and S2 normal heart sound present PERIPHERAL PULSES: Peripheral pulses 2+ throughout GI: COMMON NORMALS: Normal to inspection, nondistended, normoactive bowel s ounds present, Soft to palpation and non-tender PALPATION: Yes Soft to pa lpation : COMMON NORMALS: Yes no CVA tenderness BLADDER/KIDNEY EXAM: Yes no CVA tenderness Back/Pelvis: COMMON NORMALS: no CVA tenderness, thoracic and lumbar spine normal to inspection and no thoracic nor lumbar tenderness Extremity: COMMON NORMALS: normal to inspection, full ROM and capillary refill normal Neuro: COMMON NORMALS: patient oriented x3 and moves all extremities SENSORIUM/ORIENTATION: Yes alert MENINGEAL SIGNS: Yes no meningeal signs Psych: COMMON NORMALS: mental status grossly normal, Normal thought process present and cooperative THOUGHT PROCESS: Normal thought process present Skin: COMMON NORMALS: no rashes or lesions noted GENERAL SKIN EXAM: no rashes or lesions noted Course Vital Signs: Vital signs: Vital Signs Temperature 98.2 F 05/04/23 13:51 Pulse Rate 85 05/04/23 14:59 Respiratory Rate 16 05/04/23 13:51 Blood Pressure 112/61 05/04/23 14:59 Pulse Oximetry 98 05/04/23 14:59 Oxygen Delivery Me thod Room Air 05/04/23 14:59 MDM - Chest Pain Medical Decision Making Physical exam completed and documented, I reviewed the patient's twelve-lead EKG and we will order a chest x-ray as well as cardiac enzymes and a CBC and CMP to evaluate. I suspect most likely this is musculoskeletal strain or costochondritis. Patient does have reproducible discomfort to her lateral chest wall with deep palpation and extension of her left arm. Medical Records I reviewed the patient's medical records. Lab Data I reviewed the patient's lab results. 05/04/23 14:45 05/04/23 14:45 Radiology Impressions Chest X-Ray 05/04/23 14:31 IMPRESSION: There is some minimal linear subsegmental atelectasis versus early peribronchial inflammation at the lung bases with low lung volumes overall. No interval lobar consolidation or cardiac decompensation is appreciated. Laboratory Results WBC 5.09 10^3/uL (3.29-11.43) 05/04/23 14:45 RBC 4.38 10^6/uL (3.85-5.65) 05/04/23 14:45 Hgb 13.50 g/dL (11.27-16.99) 05/04/23 14:45 Hct 39.7 % (36-47) 05/04/23 14:45 MCV 90.6 fl (85-98) 05/04/23 14:45 MCH 30.8 pg (27-33) 05/04/23 14:45 MCHC 34.0 g/dL (30-55) 05/04/23 14:45 RDW 13.5 % (12.1-15.1) 05/04/23 14:45 Plt Count 166 10^3/cmm (157-399) 05/04/23 14:45 MPV 10.8 fL (7.4-10.4) H 05/04/23 14:45 Neut % (Auto) 59.5 % 05/04/23 14:45 Lymph % (Auto) 30.3 % 05/04/23 14:45 [facility] [place] % (Auto) 4.5 % 05/04/23 14:45 Eos % (Auto) 4.3 % 05/04/23 14:45 Baso % (Auto) 1.0 % 05/04/23 14:45 Neut # (Auto) 3.03 10^3/uL (1.8-7.7) 05/04/23 14:45 Lymph # (Auto) 1.5 10^3/uL (0.8-4.8) 05/04/23 14:45 [facility] [place] [facility] # (Auto) 0.2 10^3/uL (0.2-0.9) 05/04/23 14:45 Eos # (Auto) 0.2 10^3/uL (0.0-0.8) 05/04/23 14:45 Baso # (Auto) 0.1 10^3/uL (0.0-0.1) 05/04/23 14:45 Nucleated RBC % (auto) 0 % 05/04/23 14:45 Nucleated RBCs # 0.0 /100WBC 05/04/23 14:45 Sodium 138 mmol/L (136-145) 05/04/23 14:45 Potassium 3.5 mmol/L (3.5-5.1) 05/04/23 14:45 Chloride 104 mmol/L (98-107) 05/04/23 14:45 Carbon Dioxide 25 mmol/L (22-29) 05/04/23 14:45 Anion Gap 12.5 (5-19) 05/04/23 14:45 BUN 13 mg/dL (6-20) 05/04/23 14:45 Creatinine 0.6 mg/dL (0.5-0.9) 05/04/23 14:45 GFR Calculation 117.4 mL/min (90-130) 05/04/23 14:45 Calculated Osmolality 288 mOsm/kg (285-295) 05/04/23 14:45 Calcium 9.3 mg/dL (8.5-10.5) 05/04/23 14:45 Total Bilirubin 0.5 mg/dL (0.15-1.2) 05/04/23 14:45 AST 15 U/L (0-32) 05/04/23 14:45 ALT 15 U/L (0-33) 05/04/23 14:45 Alkaline Phosphatase 80 U/L (35-105) 05/04/23 14:45 Troponin T Baseline < 6 ng/L (0-10) 05/04/23 14:45 Total Protein 6.7 g/dL (6.6-8.7) 05/04/23 14:45 Albumin 4.8 g/dL (3.5-5.2) 05/04/23 14:45 Globulin 1.9 g/dL (1.3-4.6) 05/04/23 14:45 All radiology interpretation(s) finalized by discharge ED provider radiology interpretation(s): XR/XR chest 1V portable [id number] IMPRESSION: There is some minimal linear subsegmental atelectasis versus early peribronchial inflammation at the lung bases with low lung volumes overall. No interval lobar consolidation or cardiac decompensation is appreciated. Discharge Plan Discharge Patient Disposition: Home Clinical Impression: Atypical chest pain, Bronchitis, Viral upper respiratory illness Condition: Stable Prescriptions: New albuterol sulfate 90 mcg/actuation HFA aerosol inhaler 2 inh inhalation Q6H PRN (Reason: shortness of breath or wheezing) Qty: 8.5 0RF naproxen [Naprosyn] 500 mg tablet 500 mg PO BID Qty: 14 0RF prednisone 20 mg tablet 20 mg PO DAILY 5 Days Qty: 5 0RF No Action cefdinir 300 mg capsule 300 mg PO BID 10 Days Qty: 20 0RF hydroxyzine pamoate 25 mg capsule 25 mg PO BID PRN (Reason: Anxiety) Discharge Orders: Discharge ED (Routine); Ordered 05/04/23 Ordered By: Lauri Márquez Discharge Diet: Advance as tolerated Discharge Activity: Resume usual activity Patient Instructions: Opioid Safety, Pain Management Coding Level of Care Code ED [employer]
--- NOTE | 2023-05-04 14:31 | XRR_ITS ---
PROCEDURE INFORMATION: Exam: XR Chest Exam date and time: 05/04/2023 2:39 PM Age: 28 years old Clinical indication: Pain; Chest pressure; Additional info: Cxp.No history of trauma or recent surgery is provided. TECHNIQUE: Imaging protocol: Radiologic exam of the chest. 1image(s) are provided. Views: 1 view. COMPARISON: CR XR chest 1V [id number] 09/15/2018 11:33 PM FINDINGS: Lungs: The lung volumes are slightly low overall which may be effort related exaggerating the basilar bronchovascular and interstitial markings. Some early peribronchial inflammation could also present in this fashion.No lobar consolidation is appreciated. Pleural spaces: There is some minimal costophrenic angle blunting. No pneumothorax is appreciated. Heart/Mediastinum: The cardiomediastinal silhouette is within normal along with the central vessels ck.No cardiac decompensation is appreciated. Diaphragm: The hemidiaphragms are relatively symmetric. Bones/joints: Osseous alignment is maintained.No interval displaced fracture or dislocation is appreciated. Soft tissues: No radiopaque foreign body or subcutaneous emphysema is appreciated. Other findings: No other significant interval changes are appreciated. XR/XR chest 1V portable [id number] IMPRESSION: There is some minimal linear subsegmental atelectasis versus early peribronchial inflammation at the lung bases with low lung volumes overall. No interval lobar consolidation or cardiac decompensation is appreciated.
[2023-05-04 14:53] LABS: Basophils # 0.1 10^3/uL (0.0-0.1); Eosinophils # 0.2 10^3/uL (0.0-0.8); Eosinophils % 4.3 %; Hematocrit 39.7 % (36-47); Lymphocytes # 1.5 10^3/uL (0.8-4.8); Lymphocytes % 30.3 %; Mean Corpuscular Hemoglobin 30.8 pg (27-33); Mean Corpuscular Volume 90.6 fl (85-98); Mean Platelet Volume 10.8 fL (7.4-10.4); Monocytes # 0.2 10^3/uL (0.2-0.9); Monocytes % 4.5 %; Neutrophils # 3.03 10^3/uL (1.8-7.7); Neutrophils % 59.5 %; Nucleated Red Blood Cells % 0 %; Platelet Count 166 10^3/cmm (157-399); Red Blood Count 4.38 10^6/uL (3.85-5.65); Red Cell Distribution Width 13.5 % (12.1-15.1); White Blood Count 5.09 10^3/uL (3.29-11.43)
[2023-05-04 14:59] VITALS: BP 112/61; PULSE 85; O2SAT 98
[2023-05-04 15:20] LABS: Troponin(5th) Baseline < 6 ng/L (0-10)
[2023-05-04 15:21] LABS: Alanine Aminotransferase 15 U/L (0-33); Albumin Level 4.8 g/dL (3.5-5.2); Alkaline Phosphatase 80 U/L (35-105); Anion Gap 12.5 (5-19); Aspartate Amino Transferase 15 U/L (0-32); Blood Urea Nitrogen 13 mg/dL (6-20); Calcium 9.3 mg/dL (8.5-10.5); Carbon Dioxide 25 mmol/L (22-29); Chloride 104 mmol/L (98-107); Globulin 1.9 g/dL (1.3-4.6); Glomerular Filtration Rate 117.4 mL/min (90-130); Glucose 127 mg/dL (65-115); Osmolality Calculated 288 mOsm/kg (285-295); Potassium 3.5 mmol/L (3.5-5.1); Sodium 138 mmol/L (136-145); Total Bilirubin 0.5 mg/dL (0.15-1.2); Total Protein 6.7 g/dL (6.6-8.7)
[2023-05-04 15:36] LABS: HCG Qualitative Urine. Negative (Negative)
[2023-05-04 16:05] LABS: Bilirubin Urine Neg (Negative); Blood Urine 2+ (Negative); Glucose Urine UA Norm (Normal); Ketones Urine Negative (Negative); Nitrate Urine Negative (Negative); Protein Urine Neg (Negative); Specific Gravity, Urine 1.025 (1.005-1.030); Urine Appearance Cloudy (CLEAR); Urine Color Yellow (Yellow); pH Urine 5 (5-7)
[2023-05-04 16:06] LABS: Add Urine Culture? No; Add Urine Microscopic? YES; Bacteria Urine 2+ /hpf; Leukocyte Esterase Urine 1+ (Negative); Mucus Urine 1+ /hpf; RBC Urine 0-4 /hpf (0-2); Squamous Epithelial Cell Urine 15-25 /hpf (0-5); Urobilinogen Urine Neg (Negative); WBC Urine 15-25 /hpf (0-5)
== END 2023-05-04 15:36 | disposition home or self-care (01) ==
PROVIDERS: Emergency Provider Internal Medicine
DX: R07.89 Other chest pain (principal); J40 Bronchitis, not specified as acute or chronic; J06.9 Acute upper respiratory infection, unspecified; Z87.891 Personal history of nicotine dependence
CPT/HCPCS: 36415; 71045; 80053; 81001; 81025; 84484; 85025; 93005; 99285

== ENCOUNTER 2024-09-30 13:14 | Outpatient (CLI) | payer MEDICAID, SELFPAY ==
--- NOTE | 2024-09-30 13:15 | MR_ITS ---
WS: [id number] MRI HEAD WITH CONTRAST TECHNIQUE: Sagittal T1, T2 axial, T2 axial FLAIR, axial susceptibility weighted imaging, axial diffusion weighted images, and coronal T2 images were obtained. Pre and post-T1 axial and post T1 coronal images. ADC and FSPGR images. CLINICAL INFORMATION: FACIAL PARESTHESIA COMPARISON: None. FINDINGS: Some images are limited due to patient motion. No evidence of restricted diffusion to suggest acute ischemia. Ventricular system and basilar cisterns are patent. No hemosiderin on susceptibility- weighted images. Normal optic chiasm and pituitary infundibulum. Temporal lobes hippocampal formations are normal in appearance. No suspicious intracranial signal abnormalities. Normal vela-white differentiation. Normal posterior fossa. Normal vascular flow voids at the skull base. Mucosal thickening in the paranasal sinuses. Retention cyst in the RIGHT maxillary sinus. Mastoid air cells are well aerated. No abnormal gadolinium enhancement. Normal dural venous sinuses. MR/MR head wo/w con [id number] IMPRESSION: Some images degraded by motion. 1. No evidence of restricted diffusion to suggest acute ischemia. 2. No suspicious intracranial signal abnormalities. 3. No hemosiderin on the susceptibly weighted images. 4. No abnormal gadolinium enhancement. 5. No other suspicious findings.
[2024-09-30] MEDS: gadobenate dimeglumine 20 mL vial IV (13:57)
== END 2024-09-30 13:15 | disposition home or self-care (01) ==
PROVIDERS: PCP Nurse Practitioner Family; Visit Provider Physician Assistant
DX: R20.2 Paresthesia of skin (principal); J34.89 Other specified disorders of nose and nasal sinuses; M27.40 Unspecified cyst of jaw
CPT/HCPCS: 70553